=== PATIENT | male | born 1945 | race Caucasian/White ===

== ENCOUNTER 2023-09-02 21:10 | Inpatient (IN) | payer OTHER, SELFPAY ==
[2023-09-02 15:53] VITALS: BP 101/69
[2023-09-02 16:17] LABS: % Basophils 0.6 % (0-2); % Eosinophils 0.9 % (0-6); % Immature Granulocytes 0.6 % (0-0.5); % Lymphocytes 5.2 % (20.5-51.1); % Monocytes 5.9 % (1.7-9.3); % Neutrophils 86.8 % (42.2-75.2); Absolute Eosinophils 0.1 10^3/uL (0-0.7); Absolute Lymphocytes 0.3 10^3/uL (1.2-3.4); Absolute Monocytes 0.4 10^3/uL (0.1-0.6); Absolute Neutrophils 5.7 10^3/uL (1.4-6.5); Hematocrit 28.4 % (39.0-52.0); Hemoglobin 9.2 g/dL (13.0-18.0); Mean Corp Hgb Conc. 32.4 g/dL (33.0-37.0); Mean Corpuscular Hgb 30.9 pg (27.0-31.0); Mean Corpuscular Volume 95.3 fL (80.0-94.0); Mean Platelet Volume 9.2 fL (7.4-10.4); Nucleated Red Blood Cells % 0 % (-); Platelet Count 360 10^3/uL (130-400); Red Blood Cell Count 2.98 10^6/uL (4.70-6.10); Red Cell Dist. Width 15.2 % (11.5-14.5); White Blood Cell Count 6.6 10^3/uL (4.8-10.8)
[2023-09-02 16:27] LABS: INR 2.37; PT 26.3 Sec (11.4-14.6)
[2023-09-02 16:28] VITALS: BP 133/75
[2023-09-02 16:34] LABS: ALT (SGPT) 13 U/L (0-50); AST (SGOT) 18 U/L (17-59); Albumin 3.1 g/dl (3.5-5.0); Alkaline Phosphatase 72 U/L (38-126); Blood Urea Nitrogen 27 mg/dl (9-20); Calcium 9.6 mg/dl (8.4-10.2); Carbon Dioxide 24 mmol/L (22-30); Chloride 103 mmol/L (98-107); Glucose 146 mg/dl (70-99); Potassium 3.6 mmol/L (3.5-5.1); Sodium 138 mmol/L (135-145); Total Bilirubin 0.6 mg/dl (0.2-1.3); Total Protein 6.9 g/dl (6.3-8.2); eGFR > 60.00
[2023-09-02 16:43] LABS: NT-proBNP 2470 pg/ml; Troponin I < 0.012 ng/ml
[2023-09-02 17:00] VITALS: BP 139/83
--- NOTE | 2023-09-02 17:26 | ED.GENMED ---
History of Present Illness
General
Chief Complaint: Breathing Problem
Time Seen by Provider: 09/02/23 16:23
Travel History
Have you had any contact with someone who has COVID-19?: No
Do you have any symptoms of coronavirus? Fever > 100 degrees, chills, cough, shortness of breath, sore throat, loss of taste or smell, muscle aches, or headache?: No
History of Present Illness
History of Present Illness:
78-year-old male with history of multiple myeloma currently undergoing chemotherapy presents to the emergency department for an outpatient echocardiogram due to a large pleural effusion. Pleural effusion was obscuring some of the views on the echo
thus it was felt that it was significant enough to require intervention. Patient reports exertional shortness of breath and general weakness for the past several weeks. He denies any chest pain or pressure at this time. Denies any fevers or
chills. Currently feels well while seated in bed. Does take Eliquis, took his morning dose today
Past History
Past History
ED Past Medical History: Cancer, HTN, Hypercholesterolemia, NIDDM, Hypothyroidism and Other (Diverticulitis, kidney stones)
ED Past Surgical History: Tonsilectomy and Urological
Social History
Tobacco: Non-smoker
Alcohol: None
Drug: None
Personal:
Living: with family
Employment: Retired
Family History
Family History: Other (Noncontributory)
Review of Systems
Review of Systems
Allergies reviewed?: Yes
All Other Systems: ROS reviewed and negative except as documented in HPI and ROS
Phy Exam
Physical Exam
Physical Exam:
GEN: Frail and cachectic, no immediate distress
HEENT: Oral mucosa moist, no scleral icterus
Cardiac: Regular rate and rhythm
Lung: No respiratory distress, no tachypnea, essentially absent left breath sounds, clear right breath sounds
MSK: No gross deformity or injuries
Skin: Good color, no pallor or jaundice, no rashes
Neuro: AO x3, moves all extremities freely
Psych: Calm, cooperative
Scores
Heart Failure Risk
Heart Failure Risk Score: Not Applicable
Course
Orders/Labs/Results
Orders:
Orders
09/02/23 15:56
Electrocardiogram (*1) Stat
Reason for Study: Shortness of Breath
EKG- Treatment ONCE
09/02/23 16:01
Complete Blood Count/With Diff Stat
Comprehensive Metabolic Panel Stat
NT-proBNP Stat
Prothrombin Time Stat
Troponin I Urgent
09/02/23 16:23
CR Chest - 2 Views Urgent
Comment:
Reason For Exam: pleural effusion on echo
Abnormal Lab Results
09/02/23
16:01
RBC 2.98 L 10^6/uL
(4.70-6.10)
Hgb 9.2 L g/dL
(13.0-18.0)
Hct 28.4 L %
(39.0-52.0)
MCV 95.3 H fL
(80.0-94.0)
MCHC 32.4 L g/dL
(33.0-37.0)
RDW 15.2 H %
(11.5-14.5)
Absolute Lymphs (auto) 0.3 L 10^3/uL
(1.2-3.4)
Immature Gran % 0.6 H %
(0-0.5)
Neutrophils % 86.8 H %
(42.2-75.2)
Lymphocytes % 5.2 L %
(20.5-51.1)
PT 26.3 H Sec
(11.4-14.6)
BUN 27 H mg/dl
(9-20)
Glucose 146 H mg/dl
(70-99)
Albumin 3.1 L g/dl
(3.5-5.0)
09/02/23 16:01
09/02/23 16:01
Vital Signs
Initial and Last Documented VS:
Initial Vital Signs
Temp Pulse Resp BP Pulse Ox
98.0 F 98 16 101/69 98
09/02/23 15:53 09/02/23 15:53 09/02/23 15:53 09/02/23 15:53 09/02/23 15:53
Last Documented Vital Signs
Temp Pulse Resp BP Pulse Ox
98.0 F 93 19 133/75 97
09/02/23 15:53 09/02/23 16:30 09/02/23 16:30 09/02/23 16:28 09/02/23 18:01
MDM/Problems Addressed
MDM/Problems Addressed:
Will admit the patient to the hospitalist service for IR consultation and thoracentesis given the profound pleural effusion, not reasonable to perform tonight given the patient's Eliquis use and current clinical stability as he is not requiring
supplemental oxygen.
Comment
Comment:
Chest x-ray independently interpreted by me shows a large left pleural effusion with near total opacification of the left hemithorax
*Critical Care Note
Total Time (30-74mins, 75-104mins- exclusive of procedures): Not Applicable
ED Attending Note
-
Portions of this chart may have been created with voice recognition software.� Occasional wrong word or��sound alike� substitutions may have occurred due to the inherent limitations of voice recognition software.
Discharge Plan
Departure
Patient Disposition: Admit
Date of Disposition: 09/02/23
Time of Disposition: 19:31
Presentation/result/management discussed w/ accepting MD/DO: Hospitalist
Discharge Problem:
Pleural effusion, left
Prescriptions:
No Action
tamsulosin 0.4 MG capsule
0.4 mg PO DAILY
acyclovir 200 MG capsule
400 mg PO BID
calcium carbonate-vitamin D3 1 EACH capsule
2 ea PO BID
levothyroxine 137 MCG tablet
137 mcg PO DAILY
loperamide 2 mg Tablet
2 mg PO Q4H PRN (Reason: diarrhea)
montelukast [Singulair] 10 mg Tablet
10 mg PO UD
Rx Instructions:
take stating the night of darzalex infusion and then 3 days after
cyclophosphamide 500 mg Recon Soln
0 g IV TH
bortezomib [Velcade] 3.5 mg Recon Soln
0 mg IV TH
Xgeva 120 mg/1.7 mL (70 mg/mL) Solution
120 mg SC MONTHLY
Darzalex 20 mg/mL Solution
0 mg IV Q3W
amlodipine 5 MG tablet
5 mg PO DAILY
hydrocortisone acetate 25 mg Suppository
25 mg TN BID 7 Days Qty: 14 0RF
Referrals:
UNKNOWN - PT DOES,NOT KNOW [Unknown Provider] -
Interventions
Interventions:
*Risk Screen - Suicide Last Done: 09/02/23 17:58
*General Assessment Last Done: 09/02/23 17:58
*Neglect/Abuse Screening Last Done: 09/02/23 17:58
ED- Fall Risk Assessment Last Done: 09/02/23 18:01
*ED COVID-19 Vaccine History Last Done: 09/02/23 15:53
ED- Cardiac Assessment Last Done: 09/02/23 17:58
ED- Pulmonary Assessment Last Done: 09/02/23 18:01
[2023-09-02 18:00] VITALS: BP 141/85
--- NOTE | 2023-09-02 19:46 | HPS.HSE ---
Addendum entered and electronically signed by Helio Dumont DO 09/02/23 21:16:
Patient seen and examined independently. Agree with findings and plan as set forth by DOLORES Canela.
Patient is a 78y M with PMH significant for multiple myeloma on chemotherapy who presents to ED complaining of SOB and fatigue for the past 3-4 weeks. Patient has missed his last 2 weeks of treatment sessions due to his fatigue and generally
feeling poorly. He denies any cough, chest pain, fevers / chills, etc. He has lost about 11 pounds in the past 2 months. He has been on chemo for myeloma for the past 4 years or so.
Evaluation in the ED today reveals very large L pleural effusion. Patient denies any prior history of pleural effusion / thoracentesis / etc.
He appears very comfortable at rest, despite impressive CXR findings.
Ass:
Large Left Pleural Effusion
Multiple Myeloma on Chemotherapy
LLE DVT (03/2023)
DM-II
Hypothyroidism
BPH
Stage II Sacral Decubitus Ulcer
Plan:
Admit for further evaluation and treatment.
Hold Eliquis - last dose was AM (09/02/23).
IR evaluation for diagnostic / therapeutic thoracentesis in the AM.
CT C/A/P after thoracentesis for further evaluation.
Wound Care eval for sacral wound.
Continue outpatient meds excepting Eliquis.
Original Note:
Family Physician
-
Family Physician: Sanket Thornton
Chief Complaint
-
Shortness of breath weakness
History of Present Illness
78-year-old male from home with his present complaining of weakness with shortness of breath over the past 2 weeks. He missed his chemo for multiple myeloma last and today due to profound weakness. He has chronic orthopnea has been
sleeping with 2-3 pillows for many years he states. He states he is on Eliquis for a DVT of his left leg in March 2023. He has also had a 11 pound weight loss in the past 2 months. He was diagnosed with multiple myeloma in 2019 and has done
several rounds of different chemotherapies. He follows with [facility]. He denies current headache, dizziness, chest pain, fever, chills, palpitations, abdominal pain, nausea, vomiting, diarrhea, urinary symptoms, bleeding, black stools.
His states he is a current sacral decub that is opened. They have been using a DuoDERM pad dressing. He has past medical history of multiple myeloma on current chemotherapy, DVT left lower extremity March 2023 on Eliquis, DM2, GERD,
hypothyroidism, chronic anemia, BPH, bladder fistula repair, osteoporosis, hypothyroidism, hemorrhoidal GI bleed, diverticular bleed with ruptured diverticulum and robotic sigmoidectomy.
Medical History
Past Medical History
Past Medical History: Reports Other
Additional Past Medical History:
multiple myeloma on current chemotherapy
Chronic anemia
DVT left lower extremity March 2023 on Eliquis
DM2
GERD
hypothyroidism
BPH
bladder fistula repair
osteoporosis
hypothyroidism
hemorrhoidal GI bleed
diverticular bleed with ruptured diverticulum and robotic sigmoidectomy
Cachexia
Past Surgical History: Reports Other (diverticular bleed with ruptured diverticulum and robotic sigmoidectomy.)
Social History
Tobacco: Non-smoker
Alcohol: None
Drug: None
Personal:
Living: With Family ()
Employment: Retired
Family History
Family History: Cancer (Mother brain tumor age 83, father prostate cancer, maternal aunt breast cancer)
Allergies / Home Medications
Allergies reflects when Allergies were last updated in [facility].
Home Medications with original date entered in [facility]
Allergy/Medication List:
Allergies
Allergy/AdvReac Type Severity Reaction Status Date / Time
No Known Allergies Allergy Verified 09/02/23 15:55
Home Medications
acyclovir 200 mg capsule 400 mg PO BID Infection prevention 12/02/20
tamsulosin 0.4 mg capsule 0.4 mg PO HS Urinary issue 12/02/20
calcium carbonate 600 mg-vitamin D3 62.5 mcg (2,500 unit) capsule 2 ea PO DAILY Supplement 12/20/20
levothyroxine 137 mcg tablet 137 mcg PO DAILY Thyroid 12/20/20
denosumab 120 mg/1.7 mL (70 mg/mL) subcutaneous solution (Xgeva) 120 mg SC MONTHLY Cancer 04/20/22
amlodipine 5 mg tablet 5 mg PO DAILY PRN Blood pressure 04/21/22
Ivig 1 dose IV MONTHLY 09/02/23
Tecvayli 1 dose SC MONTHLY 09/02/23
apixaban 5 mg tablet 5 mg PO BID 09/02/23
glimepiride 1 mg tablet 1 mg PO DAILY PRN blood sugar 09/02/23
Review of Systems
-
History Source: Patient and Family ()
A 12 point ROS was completed and negative except as noted: Yes
Constitutional: Reports Weight Loss (11 pounds x 2 months) and Fatigue; Denies Chills
EENT: Denies Sore Throat or Runny Nose
Respiratory: Reports Trouble Breathing (SOB/NAIR) and Other (Orthopnea); Denies Cough
Cardiac: Denies Chest Pain, Diaphoresis, Palpitations or Syncope
Abdomen/GI: Reports Anorexia; Denies Abdominal Pain, Nausea, Vomiting, Diarrhea, Constipated, Bloody Stools or Black Stools
: Denies Dysuria, Frequency, Flank Pain, Incontinence, Difficulty Voiding, Urgency or Bleeding
Musculoskeletal: Denies Joint Pain or Edema
Skin: Denies Itching or Rash
Neurological: Reports Weakness (Generalized); Denies Dizzy or Headache
Endocrine: Reports No Symptoms
Hematologic/Lymphatic: Reports No Symptoms
Psych: Reports Calm
Physical Exam
Vital Signs
Vital Signs
Temp Pulse Resp BP Pulse Ox
98.0 F 93 19 133/75 97
09/02/23 15:53 09/02/23 16:30 09/02/23 16:30 09/02/23 16:28 09/02/23 18:01
Physical Exam
General: Cachectic; No Pain, Fever or Chills
HEENT: NormoCephalic, Anicteric, PERRLA, Brenda Conjunctivae and No Ptosis
Respiratory: Other (Absent breath sounds entire left lung, right lung CTA); No Wheezes or Rales
Cardiac: S1/S2, Regular Rhythm and Peripheral Edema (Trace bilateral ankles); No Murmur, Rub or Gallop
Breast: Deferred by me
GI: Soft, Non Tender, Non Distended, Normal Bowel Sounds and No Hepatosplenomegaly
Rectal: Deferred by Provider
Genito-urinary: Deferred by me
Musculoskeletal: No Clubbing, No Cyanosis, Edema, Left Lower Extremity (Trace to ankle) and Edema, Right Lower Extremity (Trace to ankle); No Edema, Left Upper Extremity or Edema, Right Upper Extremity
Skin: Warm and Dry; No Rash or Jaundice
Neuro: AO x 3, No Motor Deficits, Nonfocal/grossly intact, Cranial Nerves Intact and No Sensory Deficits; No Slurred Speech, Facial Droop or Tremors
Psych: Calm
Laboratory Results
-
09/02/23 16:01
09/02/23 16:01
Laboratory Results
PT 26.3 Sec (11.4-14.6) H 09/02/23 16:01
INR 2.37 09/02/23 16:01
Total Bilirubin 0.6 mg/dl (0.2-1.3) 09/02/23 16:01
AST 18 U/L (17-59) 09/02/23 16:01
ALT 13 U/L (0-50) 09/02/23 16:01
Alkaline Phosphatase 72 U/L (38-126) 09/02/23 16:01
Troponin I < 0.012 ng/ml 09/02/23 16:01
Impression/Plan
-
Impression/plan:
Admit to telemetry
#Massive left pleural effusion
97% RA
-Patient took Eliquis this a.m. 09/02/2023
-HOLD Eliquis
-Consult IR for thoracentesis
-Will need CT chest abdomen pelvis AFTER thoracentesis
-Consult oncology
CXR
1. MASSIVE LEFT PLEURAL EFFUSION which has markedly enlarged since 04/26/2023 and causes complete compressive atelectasis of the left lower lobe and moderate subpleural compressive atelectasis of the left upper
lobe.
2. � MULTIPLE MYELOMA with diffuse bone demineralization.
#Hypercoagulopathy unclear
INR 2.37 will monitor
#Sacral decub stage II POA
-Consult wound care
#Hx multiple myeloma
-Diffuse bone mineralization on CXR
Missed last 2 of chemotherapy
follows with [facility]
Continue acyclovir 4 mg twice daily
Patient is on Xgeva 120 mg subcu monthly, TecVayli and IVIG
#Chronic anemia
Hgb 9.2 appears baseline
#Hypothyroidism
cont levothyroxine
#Htn
BP stable-
cont amlodipine
#GERD
Hx GI bleed hemorrhoidal/diverticular April 2022
Hx of robotic sigmoidectomy secondary to ruptured diverticulum
#Hx hepatic hemangioma
#DM 2
-Accu-Cheks with SSI, check HgbA1c
-Continue glimepiride
#HLD
-No meds listed
#BPH
Bladder fistula repair
-Continue Flomax 0.4 mg at bedtime
#Osteoporosis
-Continue calcium carbonate plus vitamin D3
#Cachexia 2/2 malnutrition
-Consult dietary
DVT prophylaxis
Hold current Eliquis due to hypercoagulopathy and massive left pleural effusion
DNR per patient with present
--- NOTE | 2023-09-02 19:50 | PHANOTE ---
Med Rec Note:
Pt's spouse gave list of pt's medications, unable to confirm dosages with Dr Matt or ECW.
[2023-09-02 23:15] VITALS: BP 132/94
[2023-09-02 23:30] VITALS: BP 117/80
[2023-09-03] VITALS (28 sets, daily range): BP systolic 66–153; BP diastolic 69–92; PULSE 65–68; O2SAT 98–99; BMI 20.9; BMI 16.6
[2023-09-03] MEDS: TYLENOL 650 MG PO ×4 (02:27→20:55)
[2023-09-03] MEDS: FLOMAX 0.400000000000000022 MG PO ×2 (02:28→20:56)
[2023-09-03 05:26] LABS: % Basophils 0.9 % (0-2); % Eosinophils 1.4 % (0-6); % Immature Granulocytes 0.9 % (0-0.5); % Lymphocytes 4.8 % (20.5-51.1); % Monocytes 7.3 % (1.7-9.3); % Neutrophils 84.7 % (42.2-75.2); Absolute Basophils 0.1 10^3/uL (0-0.2); Absolute Eosinophils 0.1 10^3/uL (0-0.7); Absolute Immature Granulocytes 0.1 10^3/uL (0-0.05); Absolute Lymphocytes 0.3 10^3/uL (1.2-3.4); Absolute Monocytes 0.4 10^3/uL (0.1-0.6); Absolute Neutrophils 4.9 10^3/uL (1.4-6.5); Hematocrit 24.8 % (39.0-52.0); Hemoglobin 8.4 g/dL (13.0-18.0); Mean Corp Hgb Conc. 33.9 g/dL (33.0-37.0); Mean Corpuscular Hgb 31.8 pg (27.0-31.0); Mean Corpuscular Volume 93.9 fL (80.0-94.0); Nucleated Red Blood Cells % 0 % (-); Platelet Count 303 10^3/uL (130-400); Red Blood Cell Count 2.64 10^6/uL (4.70-6.10); White Blood Cell Count 5.8 10^3/uL (4.8-10.8)
[2023-09-03 05:43] LABS: Blood Urea Nitrogen 26 mg/dl (9-20); Calcium 9.2 mg/dl (8.4-10.2); Carbon Dioxide 22 mmol/L (22-30); Chloride 108 mmol/L (98-107); Estimated Creatinine Clearance 68 ml/min; Glucose 84 mg/dl (70-99); Potassium 3.7 mmol/L (3.5-5.1); Sodium 138 mmol/L (135-145); eGFR > 60.00
[2023-09-03] MEDS: TYLENOL PO ×3 (06:39→23:20)
[2023-09-03] MEDS: NORVASC PO (06:40)
[2023-09-03] MEDS: ZOVIRAX 400 MG PO ×2 (08:29→20:56)
[2023-09-03] MEDS: NORVASC 5 MG PO (08:29)
[2023-09-03] MEDS: SYNTHROID 137 MCG PO (08:29)
[2023-09-03] MEDS: OSCAL 500 + D 1000 MG PO (08:34)
[2023-09-03 08:37] LABS: Glucose - Point of Care 84 mg/dl (70-99)
[2023-09-03] MEDS: NOVOLOG FLEXPEN-LOW RESISTANCE SC ×3 (08:37→16:31)
--- NOTE | 2023-09-03 09:04 | CON.ONC ---
Addendum entered and electronically signed by Steven Silva MD 09/03/23 14:40:
Oncology Addendum:
-pt seen and evaluated - agree w/ [employer]AL[employer] CONSULTANT note and plan as outlined
-advanced multiple myeloma - known to Dr. De La Fuente and [facility]
-tx w/ Teclistamab - s/p several cycles - last 08/19 as outpt w/ Dr. De La Fuente
-new left pleural effusion - unclear etiology - s/p thoracentesis
-pleural fluid studies pending - cytology pending
-myeloma rarely involves pleural fluid - however - pt did have previous biopsy proven plasma cell neoplasm of abdominal wall and supraclavicular region
-pt had not achieved a significant positive response to current treatment
-check f/u serum protein studies - SPEP/ QIGs/ light chains
-pulmonary consulted for evaluation
-may benefit from cardiac evaluation/ repeat echo
Will continue to follow with you
Original Note:
Impression
Impression
Stage III multiple myeloma; IgG kappa on chemotherapy (Teclistamab)
Monthly IVIG; last received 08/12/23
LLE DVT; Eliquis (03/2023)
Right arm plasmacytoma s/p palliative XRT (2016)
Large left pleural effusion
Acute SOB/NAIR
Neutrophilia
Generalized weakness
Sacral decubitus ulcer
Poor appetite, weight loss
Acute diarrhea
Plan
Plan
09/02 CXR: MASSIVE LEFT PLEURAL EFFUSION which has markedly enlarged since 04/26/2023 and causes complete compressive atelectasis of the left lower lobe and moderate subpleural compressive atelectasis of the left upper lobe. MULTIPLE MYELOMA with
diffuse bone demineralization.
s/p diagnostic/therapeutic left-sided thoracentesis in [facility]: Successful ultrasound-guided thoracentesis, yielding 2000 cc of serosanguineous pleural fluid.
Eliquis held for procedure; >24 hours since last dose
CT chest/abd/pelvis to be performed following thoracentesis
Await cytology
09/03 WBC 5.8, Hgb 8.4, Hct 24.8, MCV 93.9, RDW 15, PLT 303
Monitor CBC, CMP daily
Baseline Hgb 9-10
Transfuse as needed to maintain Hgb >7, PLT >20
08/27 iron 19, %sat 9, TIBC 202, ferritin 651 (ordered outpatient due to drop in Hgb)
IV iron only appropriate in the absence of acute infection; elevated ferritin most likely inflammatory/reactive
08/27 Myeloma panel marginally improved/stable (outpatient)
Receives monthly IVIG; last received 08/12
08/27 IgG level 2882
Uric acid, LDH, CRP levels ordered
Continue Acyclovir for prophylaxis
Consider CMV/EBV titers as viral reactivation can be seen in bi-specific antibody treatment (per Dr. De La Fuente's most recent office note)
Physical therapy evaluation; falls precautions
If functional status does not improve; MRI spine can be considered to rule out epidural or leptomeningeal disease per Dr. De La Fuente
WOCN consult
Consider nutrition consult
Monitor acute diarrhea; Imodium PRN
Supportive care
Follow up with Dr. De La Fuente is scheduled 09/09/23 @ 0830 in [facility] office. We will continue to follow.
Patient History
History of Present Illness
Malcolm Collins is a 78 year old male known to Dr. De La Fuente at [facility] with history of stage III IgG kappa multiple myeloma. His disease was relatively stable until development of right arm/chest plasmacytomas. He was admitted for inpatient treatment
at [facility] following disease progression with Teslistamab. He did well and did not experience significant adverse reactions while admitted with the exception of a low grade fever. He continues on weekly treatments at [facility] as well as monthly IVIG and
Xgeva. He was last seen in the office 08/26/23. He was weak and SOB/NAIR unable to ambulate in the office and requiring a wheelchair. He was sent for outpatient ECHO and found to have a large pleural effusion obscuring the views of the ECHO. He
endorses SOB/NAIR and weakness x3-4 weeks with weight loss and poor appetite. He was sent to the ER for further evaluation and intervention for pleural effusion. He denies fever, chills, night sweats, or acute pain. He reports episodes of watery
diarrhea in the past 1-2 days with last BM this morning. He is requesting Imodium. His Eliquis is being held for upcoming procedure.
Past-Medical/Surgical History
Stage III multiple myeloma; IgG kappa
LE DVT; Eliquis (03/2023)
Revlimid-induced diarrhea
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
Hypertension
Diabetes
Hypercholesterolemia
Tonsillectomy
Hypothyroidism
Nephrolithiasis
Diverticulitis
Nonsmoker
Hypercalcemia
Generalized deconditioning
Hx ARF/ROXANA
Patient Medication
Medication Instructions Recorded Confirmed Last Taken Type
acyclovir 200 mg capsule 400 mg PO BID Infection prevention 12/02/20 04/20/22 09/02/23 History
tamsulosin 0.4 mg capsule 0.4 mg PO HS Urinary issue 12/02/20 04/20/22 09/01/23 History
calcium carbonate 600 mg-vitamin 2 ea PO DAILY Supplement 12/20/20 04/20/22 09/02/23 History
D3 62.5 mcg (2,500 unit) capsule
levothyroxine 137 mcg tablet 137 mcg PO DAILY Thyroid 12/20/20 04/20/22 09/02/23 History
denosumab 120 mg/1.7 mL (70 mg/mL) 120 mg SC MONTHLY Cancer 04/20/22 04/20/22 Unknown History
subcutaneous solution (Xgeva)
amlodipine 5 mg tablet 5 mg PO DAILY PRN Blood pressure 04/21/22 04/20/22 04/20/22 History
Ivig 1 dose IV MONTHLY 09/02/23 Unknown History
Tecvayli 1 dose SC MONTHLY 09/02/23 Unknown History
apixaban 5 mg tablet 5 mg PO BID 09/02/23 09/02/23 History
glimepiride 1 mg tablet 1 mg PO DAILY PRN blood sugar 09/02/23 Unknown History
Active Medications
Generic Name Dose Route Start Last Admin
Trade Name Randall PRN Reason Stop Dose Admin
Acetaminophen 650 mg 09/03/23 02:01 09/03/23 08:29
Acetaminophen 325 Mg Tablet PO 10/01/23 02:00 650 mg
Q4HWA VALDO Administration
Acyclovir Sodium 400 mg 09/03/23 08:00 09/03/23 08:29
Acyclovir Sodium 200 Mg Capsule PO 09/13/23 07:59 400 mg
BID VALDO Administration
Amlodipine Besylate 5 mg 09/03/23 02:01 09/03/23 08:29
Amlodipine 5 Mg Tablet PO 10/01/23 02:00 5 mg
DAILY VALDO Administration
Calcium/Vitamin D 1,000 mg 09/03/23 08:00 09/03/23 08:34
Calcium Carbonate 500 Mg/Vitamin D 5 Mcg (200 Units) Tablet PO 10/01/23 07:59 1,000 mg
DAILY VALDO Administration
Dextrose 12.5 grams 09/03/23 02:01
Dextrose 50% (0.5 Grams/Ml) 50 Ml Syringe IV 10/01/23 02:00
[id number] PRN
hypoglycemia
Protocol
Glucagon 1 mg 09/03/23 02:01
Glucagon 1 Mg Vial IM 10/01/23 02:00
PRN PRN
hypoglycemia
Protocol
Insulin Aspart 0 units 09/03/23 07:30 09/03/23 08:37
Insulin Aspart Low Resistance 300 Units/3 Ml Pen.Injctr SC 10/01/23 07:29 Not Given
AC VALDO
Protocol
Levothyroxine Sodium 137 mcg 09/03/23 07:00 09/03/23 08:29
Levothyroxine 137 Mcg Tablet PO 10/01/23 06:59 137 mcg
DAILY@0700 VALDO Administration
Sodium Chloride 0 flush 09/03/23 03:00
Sodium Chloride 0.9% (Flush) Syringe IV 10/01/23 02:59
PER PROTOCOL VALDO
Tamsulosin HCl 0.4 mg 09/03/23 02:01 09/03/23 02:28
Tamsulosin 0.4 Mg Capsule PO 10/01/23 02:00 0.4 mg
HS VALDO Administration
Review of Systems
-
History Source: Patient, Family, Coordinated Provider and Records
Constitutional: Reports Weight Loss, No Appetite, Fatigue and Weakness; Denies Fever, Night Sweats or Chills
EENT: Reports No Symptoms
Respiratory: Reports Trouble Breathing
Cardiac: Reports No Symptoms
GI: Reports Diarrhea
Breast: Reports N/A
: Reports No Symptoms
Musculoskeletal: Reports No Symptoms
Skin: Reports No Symptoms
Neuro: Reports Weakness
Endocrine: Reports No Symptoms
Hematologic/Lymphatic: Reports No Symptoms
Allergy / Immunology: Reports No Symptoms
Psych: Reports No Symptoms
Physical Exam
-
Patient is resting on the stretcher, at bedside. He denies pain. 98% on room air. He is requesting Imodium.
General: No Apparent Distress, Comfortable, Conversant, Appears Chronically Ill and Cachetic; Negative Respiratory Distress, Pain, Fever or Chills
HEENT: Negative Jaundice
Cardiology: S1, S2 and Other (tachycardia)
Pulmonary: Other (diminished)
GI: Normal Bowel Sounds
Musculoskeletal: No Edema
Extremities: Pulses Present
Neurology: Non Focal
Skin: Warm, Dry and Other (pallor)
Psych: Calm
Labs
Lab Results
WBC 5.8 10^3/uL (4.8-10.8) 09/03/23 05:08
RBC 2.64 10^6/uL (4.70-6.10) L 09/03/23 05:08
Hgb 8.4 g/dL (13.0-18.0) L 09/03/23 05:08
Hct 24.8 % (39.0-52.0) L 09/03/23 05:08
MCV 93.9 fL (80.0-94.0) 09/03/23 05:08
MCH 31.8 pg (27.0-31.0) H 09/03/23 05:08
MCHC 33.9 g/dL (33.0-37.0) 09/03/23 05:08
RDW 15.0 % (11.5-14.5) H 09/03/23 05:08
Plt Count 303 10^3/uL (130-400) 09/03/23 05:08
MPV 9.0 fL (7.4-10.4) 09/03/23 05:08
Abs Immat Gran (auto) 0.1 10^3/uL (0-0.05) H 09/03/23 05:08
Absolute Neuts (auto) 4.9 10^3/uL (1.4-6.5) 09/03/23 05:08
Absolute Lymphs (auto) 0.3 10^3/uL (1.2-3.4) L 09/03/23 05:08
Absolute Monos (auto) 0.4 10^3/uL (0.1-0.6) 09/03/23 05:08
Absolute Eos (auto) 0.1 10^3/uL (0-0.7) 09/03/23 05:08
Absolute Basos (auto) 0.1 10^3/uL (0-0.2) 09/03/23 05:08
Immature Gran % 0.9 % (0-0.5) H 09/03/23 05:08
Neutrophils % 84.7 % (42.2-75.2) H 09/03/23 05:08
Lymphocytes % 4.8 % (20.5-51.1) L 09/03/23 05:08
Monocytes % 7.3 % (1.7-9.3) 09/03/23 05:08
Eosinophils % 1.4 % (0-6) 09/03/23 05:08
Basophils % 0.9 % (0-2) 09/03/23 05:08
Creatinine 0.9 mg/dL (0.7-1.3) 09/03/23 05:08
Vital Signs
Vital Signs
Temp Pulse Resp BP Pulse Ox
98.0 F 68 18 132/84 96
09/02/23 15:53 09/03/23 08:45 09/03/23 08:45 09/03/23 08:30 09/03/23 08:45
--- NOTE | 2023-09-03 09:34 | WOUNDNOTE ---
SACRAL/BUTTOCKS (with photo flash)
--- NOTE | 2023-09-03 09:35 | WOUNDNOTE ---
FEET (L MEDIAL, R LATERAL)
--- NOTE | 2023-09-03 09:35 | WOUNDNOTE ---
FEET (R LATERAL, L MEDIAL PLANTAR)
--- NOTE | 2023-09-03 09:36 | WOUNDNOTE ---
L ANKLE/HEEL (POSTERIOR)
--- NOTE | 2023-09-03 09:37 | WOUNDNOTE ---
L GREAT TOE TIP
--- NOTE | 2023-09-03 09:38 | WOUNDNOTE ---
[facility] RN note: Patient admitted with L large pleural effusion, hypercoagulopathy. Patient lives with his . He has a daughter who is a nurse.
See H&P for complete history.
PMH: multiple myeloma on chemotherapy for 4 years, LLE DVT 03/2023, DM, BPH, stage 2 sacral pressure injury, cachexia.
Wound Location and type/assessment: Patient admitted with: diffuse red with scattered dermal open skin area stage 2 along with MASD on sacral/buttocks. R heel blanchable red. Tinea fungal appearing rash on feet/ankles/toes. Scattered bruises on
arms. Trace pedal/ankle edema. +Palpable pedal pulses.
Appetite: poor for the last month.
Pressure redistribution devices in place: ED stretcher. Patient needs help to turn. He has an eggcrate on his bed at home. He stated he lays on his side frequently in bed.
Plan: Patient turned with help from Dr. Stephens. Sacral silicone border foam changed. Air chair cushion placed under patient's sacrum. Heels off bed with another air chair cushion. Spoke with ED JASPER Allen who will coordinate placing patient on an air
bed. t/c Spoke with bed tech Grant who will bring up an air mattress (red sign bed). If goes back home when discharged suggested VN, hospital bed with air overlay mattress (luisa mattress) for patient to and patient. aware case management can
arrange.
Confirmed orders with Dr. Stephens and discussed with ED JASPER Allen.
Care plan to be updated and will follow as needed.
Note to case management of equipment requested for discharge: Hospital bed with air mattress or air overlay.
Recommend follow up at wound care center if needed upon discharge.
--- NOTE | 2023-09-03 10:18 | W.PN.HOSP.TC ---
Today's Communication/Plan
-
.
Assessment / Plan
Assessment / Plan
Physical Exam
General: Cachectic; No Pain, Fever or Chills
HEENT: Normocephalic, Anicteric, PERRLA,
Respiratory: Absent breath sounds entire left lung, right lung CTA); No Wheezes or Rales
Cardiac: S1/S2,
GI: Soft, Non Tender, Non Distended
Rectal: no bleeding
Genito-urinary:no Rangel
Musculoskeletal: no cyanosis , chronic ankle edema
Skin: stage II sacral ulcer
Neuro: AO x 3, No Motor Deficits, Nonfocal/grossly intact, Cranial Nerves Intact and No Sensory Deficits; No Slurred Speech, Facial Droop or Tremors
Psych: Calm
#Massive left pleural effusion
NO hypoxia but pt doyle snot ambulate
he has sob at time while in bed
-can resume Eliquis
-Consult IR for thoracentesis
Appreciate iR & pulmonary input
�� � ���CXR
� � � � 1. MASSIVE LEFT PLEURAL EFFUSION which has markedly enlarged since 04/26/2023 and causes complete compressive atelectasis of the left lower lobe and moderate subpleural compressive atelectasis of the left upper
� � � � � � lobe.
�� � � � 2. � MULTIPLE MYELOMA with diffuse bone demineralization.
#Sacral pressure ulcer stage II POA
-Consulted wound care
#Stage III multiple myeloma; IgG kappa on chemotherapy
-Diffuse bone mineralization on CXR
Missed last 2 of chemotherapy
follows with [facility] Dr De La Fuente
Continue acyclovir 4 mg twice daily
Patient is on Xgeva 120 mg subcu monthly, TecVayli and IVIG. Seems frail
#Chronic anemia
Hgb 9.2 appears baseline
#Hypothyroidism
�cont levothyroxine
#Htn
BP stable-
�cont amlodipine
#GERD
Hx GI bleed hemorrhoidal/diverticular April 2022
Hx of robotic sigmoidectomy secondary to ruptured diverticulum
#Hx hepatic hemangioma
#DM 2
-Accu-Cheks with SSI, check HgbA1c
-Continue glimepiride
#HLD
-No meds listed
#BPH
Bladder fistula repair
-Continue Flomax 0.4 mg at bedtime
#Osteoporosis
-Continue calcium carbonate plus vitamin D3
# Severe protein -caloric malnutrition with muscle wasting
due to cancer
DVT prophylaxis
Hold current Eliquis due to hypercoagulopathy and massive left pleural effusion
DNR
Total time spent to see the patient on the floor, examine the patient, review data and lab results, discuss treatment plan with patient and nursing staff around 55 minutes
Anticipated Discharge: > 48 hours
Subjective/Interval History
-
Date of Service: September 03, 2023
Still weak, mild sob
no abd pain
No chest pain
No fevers
Objective Data
-
Labs:
Laboratory Results
09/03/23
05:08
WBC 5.8
Hgb 8.4 L
Hct 24.8 L
Plt Count 303
Sodium 138
Potassium 3.7
Chloride 108 H
Carbon Dioxide 22
BUN 26 H
Creatinine 0.9
Glucose 84
Calcium 9.2
Vital Signs:
Vital Signs
Temp Pulse Resp BP Pulse Ox
98.0 F 69 16 141/82 98
09/02/23 15:53 09/03/23 09:30 09/03/23 09:30 09/03/23 09:30 09/03/23 09:30
[2023-09-03 10:51] LABS: LDH 139 U/L (120-246)
--- NOTE | 2023-09-03 11:45 | EDRN ---
Pt requesting Imodiom for diarrhea. Provider texted. Pt in [facility]
[2023-09-03 12:00] LABS: Glycohemoglobin (HgbA1c) 5.9 % (4.0-5.6)
[2023-09-03 12:19] LABS: Body Fluid Mononuclear 98.4 %; Body Fluid Polymorphonuclear 1.6 %; Body Fluid WBC 693 /CUMM
[2023-09-03 12:20] LABS: Body Fluid pH 7.32
[2023-09-03 12:23] LABS: Body Fluid Second Tech SD
[2023-09-03 12:39] LABS: Body Fluid Amylase 31 U/L; Body Fluid Glucose 40 mg/dl; Body Fluid Protein 5.7 g/dl; Body Fluid Triglycerides < 30 mg/dl
[2023-09-03] MEDS: IMODIUM 2 MG PO ×2 (12:41→20:57)
[2023-09-03 12:51] LABS: Glucose - Point of Care 122 mg/dl (70-99)
[2023-09-03 13:12] LABS: Fibrinogen 527 MG/DL (199-459)
[2023-09-03 13:16] LABS: Body Fluid LDH 1957 U/L
--- NOTE | 2023-09-03 13:27 | WOUNDNOTE ---
Chaim texted JASPER Hammond who confirmed patient is on an air mattress.
--- NOTE | 2023-09-03 13:36 | PTCARENOTE ---
pt presents from IR s/p Thoracentesis. pt is AAO*3, Vss, room air. c/o SOB with exertion. pt denies any pain at this time. Pt has stage 2 in his sacrum. pt is on Air bed. pt is oriented to the room. call pickens within the reach. will continue plan of
care.
[2023-09-03] MEDS: ZYLOPRIM 300 MG PO (14:24)
--- NOTE | 2023-09-03 15:24 | CON.PUL ---
Consultation
Consultation Request
Date/Time Consultation Requested: 09-03-23
Date/Time Consultation Performed: 09-03-23
Requesting Provider: Hospitalist
Performing Provider: Dr Tidwell
Reason for Consultation: pleural effusion
Medical History
-
Chief Complaint: dyspnea
History of Present Illness:
Mr Malcolm Collins is a 78/M adm 09-02 with 3-4 wks h/o dyspnea, general malaise, wt loss of 11 lbs and fatigue leading to missing 2 chemo sessions for MM (on chemo for last 4 y).
At ER, large L pleural effusion identified, no hypoxemia or hemodynamic compromise
S/p thoracentesis, exudate
Noted h/o very small L PF on CT abd Apr 2023
Multiple myeloma on chemotherapy
Advanced MM: on teclistamab s/p several cycles (last 08/19)
Large lytic lesion right iliac bone secondary to multiple myeloma
L4-5 chronic compression fracture secondary to multiple myeloma
R arm plasmacytoma s/p palliative XRT 2016
Previous biopsy proven plasma cell neoplasm of abdominal wall and supraclavicular region
Has not achieved a significant positive response to current treatment
Monthly IVIG
Past Medical History
Past Medical History: Other (see A&P for PMH/PSH)
Social History
Tobacco: Former Smoker
Drug: None
Personal:
Living: With Family
Employment: Retired
Family History
Family History: Reviewed & Not Pertinent
Allergies / Home Medications
Allergies
Allergy/AdvReac Type Severity Reaction Status Date / Time
No Known Allergies Allergy Verified 09/02/23 15:55
Home Medications
Medication Instructions Recorded Confirmed Last Taken Type
acyclovir 200 mg capsule 400 mg PO BID Infection prevention 12/02/20 09/03/23 09/02/23 History
tamsulosin 0.4 mg capsule 0.4 mg PO HS Urinary issue 12/02/20 09/03/23 09/01/23 History
calcium carbonate 600 mg-vitamin 1 cap PO DAILY 1200mg/5000 units 12/20/20 09/03/23 09/02/23 History
D3 62.5 mcg (2,500 unit) capsule
levothyroxine 137 mcg tablet 137 mcg PO DAILY Thyroid 12/20/20 09/03/23 09/02/23 History
denosumab 120 mg/1.7 mL (70 mg/mL) 120 mg SC MONTHLY Cancer 04/20/22 09/03/23 08/05/23 History
subcutaneous solution (Xgeva)
amlodipine 5 mg tablet 5 mg PO DAILY PRN sbp>150 04/21/22 09/03/23 04/20/22 History
Ivig 30 g IV MONTHLY Cancer 09/02/23 09/03/23 08/12/23 History
Tecvayli 98.5 mg SC TH Cancer 09/02/23 09/03/23 Unknown History
apixaban 5 mg tablet 5 mg PO BID Blood Clot 09/02/23 09/03/23 09/02/23 History
Prevention/Tx
glimepiride 1 mg tablet 1 mg PO DAILY PRN blood sugar>200 09/02/23 09/03/23 Unknown History
loperamide 2 mg capsule 2 mg PO TID PRN diarrhea 09/03/23 09/03/23 Unknown History
Review of Systems
-
History Source: Patient
Constitutional: Weight Loss and Fatigue
Respiratory: Trouble Breathing (resolved post L thoracentesis)
Neuro: Weakness
Vitals / Labs / Diagnostic Testing
Vital Signs
Temp Pulse Resp BP Pulse Ox
97.4 F 71 20 145/76 97
09/03/23 12:30 09/03/23 12:30 09/03/23 12:30 09/03/23 12:30 09/03/23 13:39
Lab Data
09/03/23 05:08
09/03/23 05:08
Laboratory Results
09/02/23
16:01
PT 26.3 H
INR 2.37
Microbiology
09/03/23 11:33 Pleural Fluid Gram Stain - Preliminary
09/03/23 11:33 Pleural Fluid Fungal Culture - Preliminary
Culture in progress.
Positive cultures are reported as soon as detected.
Final report to follow in four to five weeks.
Diagnostic Testing:
Physical Exam
-
HEENT: Normocephalic and Moist Mucous Membranes
Cardiovascular: Regular Rhythm, Murmur (n), Peripheral Edema (n) and Calf Tenderness (n)
Respiratory: Clear (decreased at L base) and Non-Labored Respirations
GI: Soft, Non Distended and Non Tender
Neurology: Awake, AO x 3 and No Motor Deficits
Skin: Dry
General: Respiratory Distress (n)
Assessment
-
Assessment
Mr Malcolm Collins is a 78/M adm 09-02 with 3-4 wks h/o dyspnea, general malaise, wt loss of 11 lbs and fatigue leading to missing 2 chemo sessions for MM (on chemo for last 4 y). At ER, large L pleural effusion identified
Impression:
Large L pleural effusion: s/p thoracentesis, exudate
Very small L PF on CT abd Apr 2023
Small pericardial effusion
Conditions present prior to admission:
Bilateral KULWANT DVT February 2023, on apixaban
Urosepsis and COVID illness November 2020, adm [facility] (colovesicular fistula managed conservatively)
Multiple myeloma on chemotherapy
Advanced MM: on teclistamab s/p several cycles (last 08/19)
Large lytic lesion right iliac bone secondary to multiple myeloma
L4-5 chronic compression fracture secondary to multiple myeloma
R arm plasmacytoma s/p palliative XRT 2016
Previous biopsy proven plasma cell neoplasm of abdominal wall and supraclavicular region
Has not achieved a significant positive response to current treatment
Monthly IVIG
Diabetes type 2 with neuropathy
Osteoporosis
Hypertension
Hypothyroidism
Hyperlipidemia
Diverticulosis
Renal calculi
BPH
Hepatic hemangioma
Chronic anemia
Former smoker-quit many years ago
Tonsillectomy/urologic surgery
Stage II sacral decubitus ulcer
Cachexia
DNR
Plan
Remains on RA with POx in high 90s since adm
Not on home O2 or BDs
Resp cevallos comfortable, conversant
Keep asp precs
Large L pleural effusion
S/p thoracentesis 09-02: 2L, serosanguineous PF, M 98%, ^^^LDH, G stain negative, cx/cyto pending. Exudate
Unclear etiology and chronicity at this juncture
No interim chest films since after CT abd Apr 2023 which showed a very small L PF
Potentially unsuspected slow chronic increase of L PF overtime until volume became large enough to elicit symptoms
MM rarely associated with pleural effusions, however, as noted by Onc fashion consultant sales h/o previous biopsy proven plasma cell neoplasm of abdominal wall and supraclavicular region
Doubt hypothyroidism (well controlled) and mild hypoalbuminemia are associated to large L PF
No current meds associated with pleural effusion
Noted small pericardial effusion: same as above, MM could rarely be involved
Follow L PF results
Agree with observation off atbs
Retap if needed to control symptoms of increasing dyspnea or hypoxemia
Consider tunnelized pleural catheter if recurrent effusion in spite of repeat thoracentesis
Continue chronic AC (provoked DVT on apixaban)
From pulm perspective can d/c in next 24-48 hrs if otherwise stable
Agrees to follow with [facility] and Onc. Rec follow up CXR PA/lat on day of [facility] visit
All above d/w Mr and Mrs Collins, their daughter and KP at bedside
Diagnostic Data
CXR 09-02 and 24: Large L pleural effusion, moderate improvement after large volume thoracentesis
CT abd 04-26-23: very small L PF on lower chest cuts
TTE 09-02-23: small pericardial effusion. Normal biventricular function
[2023-09-03 16:31] LABS: Glucose - Point of Care 138 mg/dl (70-99)
[2023-09-03] MEDS: NIZORAL 2% CREAM 1 APPLIC TOPICAL (20:55)
[2023-09-04] MEDS: DESENEX/MITRAZOL/ZEASORB 1 APPLIC TOPICAL ×2 (01:23→09:16)
[2023-09-04 03:09] VITALS: BP 129/75
[2023-09-04] MEDS: TYLENOL PO ×2 (03:29→23:45)
[2023-09-04] MEDS: SYNTHROID 137 MCG PO (04:30)
[2023-09-04 06:00] VITALS: BMI 16.8
[2023-09-04 06:49] LABS: % Basophils 0.9 % (0-2); % Eosinophils 2.8 % (0-6); % Immature Granulocytes 1.1 % (0-0.5); % Lymphocytes 4.2 % (20.5-51.1); % Monocytes 7.5 % (1.7-9.3); % Neutrophils 83.5 % (42.2-75.2); Absolute Basophils 0.1 10^3/uL (0-0.2); Absolute Eosinophils 0.2 10^3/uL (0-0.7); Absolute Immature Granulocytes 0.1 10^3/uL (0-0.05); Absolute Lymphocytes 0.2 10^3/uL (1.2-3.4); Absolute Monocytes 0.4 10^3/uL (0.1-0.6); Absolute Neutrophils 4.4 10^3/uL (1.4-6.5); Hemoglobin 8.7 g/dL (13.0-18.0); Mean Corp Hgb Conc. 33.5 g/dL (33.0-37.0); Mean Corpuscular Hgb 30.5 pg (27.0-31.0); Mean Corpuscular Volume 91.2 fL (80.0-94.0); Mean Platelet Volume 9.3 fL (7.4-10.4); Nucleated Red Blood Cells % 0 % (-); Platelet Count 285 10^3/uL (130-400); Red Blood Cell Count 2.85 10^6/uL (4.70-6.10); Red Cell Dist. Width 14.9 % (11.5-14.5); White Blood Cell Count 5.3 10^3/uL (4.8-10.8)
[2023-09-04 07:22] LABS: Blood Urea Nitrogen 22 mg/dl (9-20); Calcium 8.8 mg/dl (8.4-10.2); Carbon Dioxide 26 mmol/L (22-30); Chloride 104 mmol/L (98-107); Estimated Creatinine Clearance 61 ml/min; Glucose 117 mg/dl (70-99); Potassium 3.5 mmol/L (3.5-5.1); Sodium 136 mmol/L (135-145); eGFR > 60.00
[2023-09-04 07:48] VITALS: BP 126/78
[2023-09-04 07:54] LABS: Glucose - Point of Care 115 mg/dl (70-99)
[2023-09-04] MEDS: NOVOLOG FLEXPEN-LOW RESISTANCE SC ×2 (08:04→14:18)
[2023-09-04] MEDS: NORVASC 5 MG PO (09:15)
[2023-09-04] MEDS: OSCAL 500 + D 1000 MG PO (09:15)
[2023-09-04] MEDS: TYLENOL 650 MG PO ×4 (09:15→20:28)
[2023-09-04] MEDS: ZOVIRAX 400 MG PO ×2 (09:15→20:28)
[2023-09-04] MEDS: ZYLOPRIM 300 MG PO (09:15)
[2023-09-04] MEDS: NIZORAL 2% CREAM 1 APPLIC TOPICAL ×2 (09:16→20:31)
--- NOTE | 2023-09-04 09:17 | W.PN.HOSP.TC ---
Today's Communication/Plan
-
likely dc in am
Assessment / Plan
Assessment / Plan
Physical Exam
General: Cachectic; No Pain, Fever or Chills
HEENT: Normocephalic, Anicteric, PERRLA,
Respiratory: Absent breath sounds entire left lung, right lung CTA); No Wheezes or Rales
Cardiac: S1/S2,
GI: Soft, Non Tender, Non Distended
Rectal: no bleeding
Genito-urinary:no Rangel
Musculoskeletal: no cyanosis , chronic ankle edema
Skin: stage II sacral ulcer
Neuro: AO x 3, No Motor Deficits, Nonfocal/grossly intact, Cranial Nerves Intact and No Sensory Deficits; No Slurred Speech, Facial Droop or Tremors
Psych: Calm
#Large left pleural effusion
s/p successful ultrasound-guided thoracentesis, yielding 2000 cc of serosanguineous pleural fluid on 09/03.
No hypoxia but pt is becoming bedbound.
No sob today
-Resumed Eliquis
-Etiology could be idiopathic as MM not usual to cause pleural effusion. Cytology is pending. Not c/w infectious process, gram stain negative. No underlying cavitary lesion or chronic cough.
Appreciate IR & pulmonary input
#Sacral pressure ulcer stage II POA
-Consulted wound care
#Stage III multiple myeloma; IgG kappa on chemotherapy
-Diffuse bone mineralization on CXR
Missed last 2 of chemotherapy
follows with [facility] Dr De La Fuente
Continue acyclovir 4 mg twice daily
Patient is on Xgeva 120 mg subcu monthly, TecVayli and IVIG. Seems frail
#Chronic anemia due to cancer
Hgb 8-9 appears baseline. Transfuse if HGB less than 8
#Hypothyroidism
�cont levothyroxine
#Htn
BP stable-
�cont amlodipine
#GERD
Hx GI bleed hemorrhoidal/diverticular April 2022
Hx of robotic sigmoidectomy secondary to ruptured diverticulum
#Hx hepatic hemangioma
#DM 2
-Accu-Cheks with SSI, check HgbA1c
-Continue glimepiride
#HLD
-No meds listed
#BPH
Bladder fistula repair
-Continue Flomax 0.4 mg at bedtime
#Osteoporosis
-Continue calcium carbonate plus vitamin D3
# Severe protein -caloric malnutrition with muscle wasting
due to cancer
DVT prophylaxis
Hold current Eliquis due to hypercoagulopathy and massive left pleural effusion
DNR
Total time spent to see the patient on the floor, examine the patient, review data and lab results, discuss treatment plan with patient and nursing staff around 57 minutes
Anticipated Discharge: Within 24 hours
Subjective/Interval History
-
Date of Service: September 04, 2023
No chest pain
No sob
No fevers
Objective Data
-
Labs:
Laboratory Results
09/04/23
06:29
WBC 5.3
Hgb 8.7 L
Hct 26.0 L
Plt Count 285
Sodium 136
Potassium 3.5
Chloride 104
Carbon Dioxide 26
BUN 22 H
Creatinine 0.8
Glucose 117 H
Calcium 8.8
Vital Signs:
Vital Signs
Temp Pulse Resp BP Pulse Ox
97.6 F 70 16 126/78 97
09/04/23 07:48 09/04/23 07:48 09/04/23 07:48 09/04/23 07:48 09/04/23 07:48
I&O
09/03/23 09/04/23 09/05/23
06:59 06:59 06:59
Intake Total 960 / 960
Output Total 370 / 545 175 / 175
Balance 590 / 415 -175 / -175
[2023-09-04] MEDS: OMNIPAQUE 50 ML PO (11:05)
[2023-09-04 11:11] VITALS: BP 121/68
--- NOTE | 2023-09-04 13:45 | W.PN.PUL3 ---
Today's Communication / Plan
-
Follow-up pleural fluid cytology
Incentive spirometer
Up OOB as tolerated
Outpatient follow-up with us in the office with 2 view CXR on the day of that visit (or within 1-2 days of that office visit)
Assessment
-
Assessment
Mr Malcolm Collins is a 78/M adm 09-02 with 3-4 wks h/o dyspnea, general malaise, wt loss of 11 lbs and fatigue leading to missing 2 chemo sessions for MM (on chemo for last 4 y). At ER, large L pleural effusion identified
Impression:
Large L pleural effusion: s/p thoracentesis, exudate -removed 2 L serosanguineous fluid with glucose 40, LDH 1956, pH 7.32 - cytology pending
Very small L PF on CT abd Apr 2023
Small pericardial effusion
Conditions present prior to admission:
Bilateral KULWANT DVT February 2023, on apixaban
Urosepsis and COVID illness November 2020, adm [facility] (colovesicular fistula managed conservatively)
Multiple myeloma on chemotherapy
Advanced MM: on teclistamab s/p several cycles (last 08/19)
Large lytic lesion right iliac bone secondary to multiple myeloma
L4-5 chronic compression fracture secondary to multiple myeloma
R arm plasmacytoma s/p palliative XRT 2016
Previous biopsy proven plasma cell neoplasm of abdominal wall and supraclavicular region
Has not achieved a significant positive response to current treatment
Monthly IVIG
Diabetes type 2 with neuropathy
Osteoporosis
Hypertension
Hypothyroidism
Hyperlipidemia
Diverticulosis
Renal calculi
BPH
Hepatic hemangioma
Chronic anemia
Former smoker-quit many years ago
Tonsillectomy/urologic surgery
Stage II sacral decubitus ulcer
Cachexia
DNR
Plan
Remains on RA and is comfortable
Not on home O2 or BDs
Keep asp precs
Large L pleural effusion
S/p thoracentesis 09-02: 2L, serosanguineous PF, M 98%, ^^^LDH, G stain negative, cx/cyto pending. Exudate
Unclear etiology and chronicity at this juncture
No interim chest films since after CT abd Apr 2023 which showed a very small L PF
Potentially unsuspected slow chronic increase of L PF overtime until volume became large enough to elicit symptoms
MM rarely associated with pleural effusions, however, as noted by Onc direct response consultant h/o previous biopsy proven plasma cell neoplasm of abdominal wall and supraclavicular region
Doubt hypothyroidism (well controlled) and mild hypoalbuminemia are associated to large L PF
No current meds associated with pleural effusion
Noted small pericardial effusion: same as above, MM could rarely be involved
Follow L PF cytology (still pending as of 09/04/2023)
Agree with observation off atbs
Retap if needed to control symptoms of increasing dyspnea or hypoxemia
Consider tunnelized pleural catheter if recurrent effusion in spite of repeat thoracentesis
Restart Eliquis (on due to Hx of provoked DVT)
From pulm perspective can d/c tomorrow if otherwise stable
Agrees to follow with [facility] and Onc. Rec follow up CXR PA/lat on day of [facility] visit
All above d/w Mr and Mrs Collins, their daughter and KP at bedside
(Patient seen and evaluated on 09/04/2023)
Diagnostic Data
CXR 09-02 and : Large L pleural effusion, moderate improvement after large volume thoracentesis
CT abd 04-26-23: very small L PF on lower chest cuts
TTE 09-02-23: small pericardial effusion. Normal biventricular function
Subjective Data
-
Date of Service:
Date of Service: September 04, 2023
Chief Complaint: Pulmonary Follow Up
Subjective:
Seen today. Feels better although does still feel weak. He says he has not gotten up out of bed yet. He denies cough, denies shortness of breath and he is on room air breathing comfortable.
Review of Systems
General: Other (12 point ROS performed and is negative unless mentioned above.)
Objective Data
Data Reviewed
Vital Signs / I&O / Oxygen:
Vital Signs
Temp Pulse Resp BP Pulse Ox
97.4 F 64 18 121/68 98
09/04/23 11:11 09/04/23 11:11 09/04/23 11:11 09/04/23 11:11 09/04/23 11:11
Intake and Output
09/03/23 09/04/23 09/05/23
06:59 06:59 06:59
Intake Total 960 / 960
Output Total 370 / 545 175 / 175
Balance 590 / 415 -175 / -175
SaO2 98
Physical Exam
General: Comfortable
HEENT: Normocephalic and Anicteric
Cardiovascular: S1-S2 and Peripheral Edema (+2 pedal edema)
Respiratory: Wheeze (neg), Crackles (faint in LLL), Rhonchi (neg) and Other (Reduced breath sounds at left base)
GI: Soft, Non Distended, Non Tender and Normal Bowel Sounds
Neurology: Awake and Alert
Skin: Warm and Dry
Labs/Micro/Reports
Lab Data
09/04/23 06:29
09/04/23 06:29
Microbiology
09/03/23 11:33 Pleural Fluid Body Fluid Culture - Preliminary
No Growth After 18-24 Hours
09/03/23 11:33 Pleural Fluid Gram Stain - Preliminary
09/03/23 11:33 Pleural Fluid Fungal Culture - Preliminary
Culture in progress.
Positive cultures are reported as soon as detected.
Final report to follow in four to five weeks.
[2023-09-04 14:18] LABS: Glucose - Point of Care 112 mg/dl (70-99)
[2023-09-04 15:00] VITALS: BP 134/78
[2023-09-04] MEDS: IMODIUM 2 MG PO ×2 (15:14→20:28)
--- NOTE | 2023-09-04 16:15 | CM ---
Cm reviewed medical records.
CM met with patient in room. Patient confirmed demographics. Patient lives independently with daughter in a first floor set up. Patient denied history of VN or SNF. Patient has a walker for ambulation. Patient is active with his PCP. Patient uses
[facility] for medication services .
Patient would be agreeable to home discharge with [facility]. CM updated [facility] regional liaison with new referral.
PLAN: Home with [facility]
[2023-09-04 17:08] LABS: Glucose - Point of Care 170 mg/dl (70-99)
[2023-09-04] MEDS: NOVOLOG FLEXPEN-LOW RESISTANCE 1 UNITS SC (17:11)
[2023-09-04 19:30] VITALS: BP 132/75
[2023-09-04 21:20] LABS: Glucose - Point of Care 195 mg/dl (70-99)
[2023-09-04] MEDS: FLOMAX 0.400000000000000022 MG PO (21:56)
[2023-09-04 23:50] VITALS: BP 125/75
[2023-09-05 03:50] VITALS: BP 130/75
[2023-09-05] MEDS: SYNTHROID 137 MCG PO (04:57)
[2023-09-05] MEDS: TYLENOL 650 MG PO ×2 (04:57→08:44)
[2023-09-05 05:10] VITALS: BMI 17.4
[2023-09-05 07:00] LABS: % Basophils 0.9 % (0-2); % Eosinophils 2.7 % (0-6); % Immature Granulocytes 0.5 % (0-0.5); % Lymphocytes 3.8 % (20.5-51.1); % Monocytes 7.6 % (1.7-9.3); % Neutrophils 84.5 % (42.2-75.2); Absolute Basophils 0.1 10^3/uL (0-0.2); Absolute Eosinophils 0.2 10^3/uL (0-0.7); Absolute Lymphocytes 0.2 10^3/uL (1.2-3.4); Absolute Monocytes 0.4 10^3/uL (0.1-0.6); Absolute Neutrophils 4.6 10^3/uL (1.4-6.5); Hematocrit 25.7 % (39.0-52.0); Hemoglobin 8.6 g/dL (13.0-18.0); Mean Corp Hgb Conc. 33.5 g/dL (33.0-37.0); Mean Corpuscular Hgb 30.9 pg (27.0-31.0); Mean Corpuscular Volume 92.4 fL (80.0-94.0); Mean Platelet Volume 9.1 fL (7.4-10.4); Nucleated Red Blood Cells % 0 % (-); Platelet Count 280 10^3/uL (130-400); Red Blood Cell Count 2.78 10^6/uL (4.70-6.10); Red Cell Dist. Width 14.9 % (11.5-14.5); White Blood Cell Count 5.5 10^3/uL (4.8-10.8)
[2023-09-05 07:28] VITALS: BP 128/73
[2023-09-05 07:28] LABS: Blood Urea Nitrogen 20 mg/dl (9-20); Carbon Dioxide 27 mmol/L (22-30); Chloride 103 mmol/L (98-107); Estimated Creatinine Clearance 56 ml/min; Glucose 108 mg/dl (70-99); Potassium 3.5 mmol/L (3.5-5.1); Sodium 134 mmol/L (135-145); eGFR > 60.00
[2023-09-05 07:57] LABS: Glucose - Point of Care 101 mg/dl (70-99)
[2023-09-05] MEDS: NOVOLOG FLEXPEN-LOW RESISTANCE SC (08:40)
[2023-09-05] MEDS: OSCAL 500 + D 1000 MG PO (08:43)
[2023-09-05] MEDS: NORVASC 5 MG PO (08:43)
[2023-09-05] MEDS: ZOVIRAX 400 MG PO (08:44)
[2023-09-05] MEDS: ZYLOPRIM 300 MG PO (08:44)
[2023-09-05] MEDS: DESENEX/MITRAZOL/ZEASORB 1 APPLIC TOPICAL (08:48)
[2023-09-05] MEDS: NIZORAL 2% CREAM 1 APPLIC TOPICAL (08:48)
--- NOTE | 2023-09-05 09:34 | W.DCSUMMARY ---
Discharge Summary
Discharge Data
Date of Admission: 09/02/23
Date of Discharge: 09/05/23
-
Pending Results: No
Hospital Course
78 years old male admitted with shortness of breath and progressive weakness. Patient was found to have large left pleural effusion. He was evaluated by interventional radiologist and had successful ultrasound-guided thoracentesis with yielding
of 2000 milliliters of serosanguineous� pleural fluid on September 03. No complications reported. No hypoxia. Shortness of breath resolved. Patient was maintained on Eliquis. patient was evaluated by pulmonary doctor and thought that effusion
was unusual for multiple myeloma disease. Cytology was pending. Effusion was not associated with bacterial infectious process as Gram stain was negative. Patient had no underlying cavitary lesion or cough. Scan of the chest, abdomen and pelvis
showed signs of progression of underlying multiple myeloma with pulmonary masses in the left hemithorax, left lower lobe atelectasis, large left anterior chest wall mass involving left ribs, soft tissue mass on the left kidney with diffuse osseous
lytic changes consistent with multiple myeloma. Patient was seen by oncology service in the hospital. Patient was advised to discuss those findings with his primary oncologist Dr. De La Fuente. Patient remained hemodynamically stable. Patient was given
a prescription for antifungal cream to be applied to/ankles/toes. He was evaluated by physical therapy and recommended home health. Case was discussed with his . Patient was discharged in a stable condition.
Physical Exam
General: Cachectic; No Pain, Fever or Chills
HEENT: Normocephalic, Anicteric, PERRLA,
Respiratory: Absent breath sounds entire left lung, right lung CTA); No Wheezes or Rales
Cardiac: S1/S2,
GI: Soft, Non Tender, Non Distended
Rectal: no bleeding
Genito-urinary:no Rangel
Musculoskeletal: no cyanosis , chronic ankle edema
Skin: stage II sacral ulcer
Neuro: AO x 3, No Motor Deficits, Nonfocal/grossly intact, Cranial Nerves Intact and No Sensory Deficits; No Slurred Speech, Facial Droop or Tremors
Psych: Calm.
Total discharge time spent to see the patient on the floor, examine the patient, review data and lab results, discuss treatment plan with patient, and nursing staff around 65 minutes
Discharge Plan
-
Patient Disposition: Home with Home Care
Discharge Diagnosis/Procedures: Large left pleural effusion
Stage II sacral pressure ulcer
Fungal infection of both feet
Diet: As tolerated
Activity Restrictions/Additional Instructions:
Wound Care Instructions
Sacral/buttocks-clean with saline or soap and water, pat dry, 2% miconazole powder followed by no sting barrier wipe or zinc barrier ointment, silicone border foam, change daily and as needed for loosened dressing.
Nizoral cream to ankle/foot/toe rash twice a day x 14 days.
Air mattress
Elevate heels off bed with pillows
Pressure redistributing chair cushion (i.e. Air chair cushion).
Follow up at wound care center if needed, call for an appointment.
Referrals:
Thaddeus Tidwell MD [Active] - (New patient, L pleural effusion, MM on chemo. See with CXR in 2-3 wks post d/c)
Sanket Thornton DO [Family Provider] - in one to two weeks
Bladimir De La Fuente MD [Active] - in one to two weeks
Prescriptions:
New
ketoconazole 2 % cream
1 applic topical BID Qty: 60 0RF
Rx Instructions:
Apply to both feet
Continued
tamsulosin 0.4 MG capsule
0.4 mg PO HS
acyclovir 200 MG capsule
400 mg PO BID
calcium carbonate-vitamin D3 1 EACH capsule
1 cap PO DAILY
levothyroxine 137 MCG tablet
137 mcg PO DAILY
Xgeva 120 mg/1.7 mL (70 mg/mL) Solution
120 mg SC MONTHLY
amlodipine 5 MG tablet
5 mg PO DAILY PRN (Reason: sbp>150)
glimepiride 1 mg Tablet
1 mg PO DAILY PRN (Reason: blood sugar>200)
apixaban 5 mg Tablet
5 mg PO BID
Ivig
30 g IV MONTHLY
Tecvayli
98.5 mg SC TH
loperamide 2 mg Capsule
2 mg PO TID PRN (Reason: diarrhea)
Discharge Orders:
Discharge Patient (As Directed); Ordered 09/05/23
Ordered By: Heather Stephens
--- NOTE | 2023-09-05 11:12 | CM ---
Home with [facility].
Plan; Home with [facility].
[2023-09-06 00:53] LABS: IgG 2531 mg/dl (700-1600)
[2023-09-06 02:05] LABS: IgA < 50 mg/dl (70-400); IgM < 25 mg/dl (40-230)
--- NOTE | 2023-09-06 10:25 | VNURNOTE ---
[facility] referral completed in [facility] after review of chart.
Liaison notified of referral by TT 09/06, patient was discharged 09/05.
[2023-09-06 22:10] LABS: Free Kappa Light Chains,Quant 392.57 mg/L (3.30-19.40); Free Lambda Light Chains,Quant <1.37 mg/L (5.71-26.30)
[2023-09-08 21:03] LABS: IgA <2 mg/dL (68-408); IgG 2632 mg/dL (768-1632); IgM <10 mg/dL (35-263)
[2023-09-08 21:15] LABS: Albumin 2.87 g/dL (3.75-5.01); Monoclonal Protein 1.84 g/dL; SPEP IFE Reflex IFE Done; Total Protein-Electrophoresis 6.9 g/dL (6.3-8.2)
== END 2023-09-05 11:37 | disposition home health service (06) | DRG 841 ==
LOC: 4 EAST ACU 21:10
PROVIDERS: Clinical Nurse Specialist Family Health; Emergency Medicine; Radiology Diagnostic Radiology; ADMITTING PHYSICIAN Hospitalist; ATTENDING PHYSICIAN Internal Medicine; CONSULT PHYSICIAN Internal Medicine Pulmonary Disease; EMERGENCY PHYSICIAN Emergency Medicine; FAMILY PHYSICIAN Family Medicine; OTHER PHYSICIAN Internal Medicine Hematology & Oncology
PROC: 0W993ZZ Drainage of Right Pleural Cavity, Percutaneous Approach (ICD-10-PCS; 2023-09-03)
DX: C90.00 Multiple myeloma not having achieved remission (principal); J90 Pleural effusion, not elsewhere classified; R64 Cachexia; Z68.1 Body mass index [BMI] 19.9 or less, adult; J98.11 Atelectasis; E03.9 Hypothyroidism, unspecified; E11.40 Type 2 diabetes mellitus with diabetic neuropathy, unspecified; E78.00 Pure hypercholesterolemia, unspecified; I10 Essential (primary) hypertension; M81.0 Age-related osteoporosis without current pathological fracture; L89.152 Pressure ulcer of sacral region, stage 2; N40.0 Benign prostatic hyperplasia without lower urinary tract symptoms; R53.83 Other fatigue; D64.9 Anemia, unspecified; K21.9 Gastro-esophageal reflux disease without esophagitis; Z87.442 Personal history of urinary calculi; Z79.890 Hormone replacement therapy; Z86.718 Personal history of other venous thrombosis and embolism; Z91.198 Patient's noncompliance with other medical treatment and regimen for other reason; Z92.21 Personal history of antineoplastic chemotherapy; Z80.3 Family history of malignant neoplasm of breast; Z80.42 Family history of malignant neoplasm of prostate; Z80.8 Family history of malignant neoplasm of other organs or systems; Z79.84 Long term (current) use of oral hypoglycemic drugs; Z79.01 Long term (current) use of anticoagulants; Z66 Do not resuscitate; Z92.3 Personal history of irradiation; Z87.891 Personal history of nicotine dependence
CPT/HCPCS: 88305; 32555; 71045; 71046; 71260; 74177; 80048; 80053; 82150; 82784; 82945; 82962; 83036; 83521; 83615; 83880; 83986; 84155; 84157; 84165; 84478; 84484; 84550; 85025; 85384; 85610; 86140; 86334; 87015; 87070; 87102; 87116; 87205; 87206; 88112; 89051; 93005; 93306; 97166; 99285; Q9967

== ENCOUNTER → 2023-09-20 10:38 | Outpatient (REF) | payer OTHER, SELFPAY ==
[2023-09-20] VITALS (7 sets, daily range): BP systolic 83–133; BP diastolic 74–87
[2023-09-20 11:03] LABS: % Basophils 1.4 % (0-2); % Eosinophils 2.8 % (0-6); % Immature Granulocytes 1.4 % (0-0.5); % Lymphocytes 13.7 % (20.5-51.1); % Monocytes 9.5 % (1.7-9.3); % Neutrophils 71.2 % (42.2-75.2); Absolute Eosinophils 0.1 10^3/uL (0-0.7); Absolute Lymphocytes 0.4 10^3/uL (1.2-3.4); Absolute Monocytes 0.3 10^3/uL (0.1-0.6); Hematocrit 28.1 % (39.0-52.0); Hemoglobin 8.8 g/dL (13.0-18.0); Mean Corp Hgb Conc. 31.3 g/dL (33.0-37.0); Mean Corpuscular Hgb 31.5 pg (27.0-31.0); Mean Corpuscular Volume 100.7 fL (80.0-94.0); Mean Platelet Volume 8.9 fL (7.4-10.4); Nucleated Red Blood Cells % 0 % (-); Platelet Count 202 10^3/uL (130-400); Red Blood Cell Count 2.79 10^6/uL (4.70-6.10); Red Cell Dist. Width 17.7 % (11.5-14.5); White Blood Cell Count 2.8 10^3/uL (4.8-10.8)
[2023-09-20 11:06] LABS: INR 1.25; PT 15.5 Sec (11.4-14.6)
[2023-09-20 11:19] LABS: Glucose - Point of Care 98 mg/dl (70-99)
[2023-09-20] MEDS: ANCEF 10 IV (11:52)
[2023-09-20 12:47] LABS: Glucose - Point of Care 102 mg/dl (70-99)
== END ==
LOC: RADI 10:38
PROVIDERS: ATTENDING PHYSICIAN Internal Medicine Hematology & Oncology; FAMILY PHYSICIAN Family Medicine
DX: J90 Pleural effusion, not elsewhere classified (principal); C90.00 Multiple myeloma not having achieved remission
CPT/HCPCS: 32550; 36415; 75989; 82962; 85025; 85610; 99152; 99153; C1729

== ENCOUNTER 2023-10-03 11:30 | Inpatient (IN) | payer OTHER, SELFPAY ==
[2023-10-03] VITALS (45 sets, daily range): BP systolic 77–143; BP diastolic 34–92
--- NOTE | 2023-10-03 08:44 | ED.GENMED ---
History of Present Illness
<Alonzo Vega DO - Last Filed: 10/03/23 14:44>
General
Chief Complaint: Blood Pressure Problem
Time Seen by Provider: 10/03/23 08:24
Travel History
Have you had any contact with someone who has COVID-19?: No
Do you have any symptoms of coronavirus? Fever > 100 degrees, chills, cough, shortness of breath, sore throat, loss of taste or smell, muscle aches, or headache?: No
<Tk Linares PA-C - Last Filed: 10/03/23 10:45>
General
Source: patient, family and ambulance crew
History of Present Illness
History of Present Illness:
78-year-old male with past medical history of multiple myeloma, diabetes, diverticulitis, has been dealing with new orthostasis presenting to the emergency department via EMS for multiple concerns including feeling lightheaded, generally unwell,
short of breath but for unknown duration of time. Patient was unable to give much history and shortly after patient arrived to the came to the emergency department and was able to provide much of the patient's history. Patient was recently
admitted at this facility around a month ago for a large left pleural effusion which was drained via thoracentesis with around 2 L of fluid being removed. About 2 weeks ago patient had an aseptic catheter placed by interventional radiology for
which a visiting nurse has been draining about 800 mL of fluid twice weekly. This morning patient had significantly increased respiratory rate and difficulty breathing. Patient's daughter is a nurse and drained about 1 L of serosanguineous fluid
from the catheter and while patient's breathing did improve somewhat the was still concerned with patient's respiratory rate and notes that he has increased pallor and has been generally unwell. Patient did follow-up with Dr. De La Fuente upon his
discharge from this facility. They have yet to resume any chemotherapy or any other treatments due to patient's ongoing weakness. Patient is presently DO NOT RESUSCITATE but is amenable to intubations if only for temporary time.
Past History
<Alonzo Vega DO - Last Filed: 10/03/23 14:44>
Past History
ED Past Medical History: Cancer, HTN, Hypercholesterolemia, NIDDM, Hypothyroidism and Other (Diverticulitis, kidney stones)
ED Past Surgical History: Tonsilectomy and Urological
Social History
Tobacco: Non-smoker
Alcohol: None
Drug: None
Personal:
Living: with family
Employment: Retired
Family History
Family History: Other (Noncontributory)
<Tk Linares PA-C - Last Filed: 10/03/23 10:45>
Review of Systems
All Other Systems: ROS reviewed and negative except as documented in HPI and ROS
<LEISA Oseguera Last Filed: 10/03/23 10:45>
Physical Exam
Physical Exam:
GENERAL: Alert , very thin, pale, unwell appearing
EYE: conjunctiva clear
NECK: Supple
ENT: o/p clr, dry mucous membranes
CARDIAC: Tachycardic rate and rhythm, no murmur
LUNGS: Diminished breath sounds at the left lung base, tachypneic, mild accessory muscle use, asept catheter noted at the anterior lateral left lower ribs
Abdomen: Soft, nontender, nondistended
NEUROLOGICAL: Alert and oriented x 3
SKIN: Warm and dry, skin intact.
MUSCULOSKELETAL: well perfused.
PSYCH: Normal and appropriate interaction.
<LEISA Oseguera Last Filed: 10/03/23 10:45>
Heart Failure Risk
Heart Failure Risk Score: Not Applicable
Heart Score for Chest Pain Patients
STEMI patient?: Not applicable
Withdrawal Assessment of Alcohol
Withdrawal Assessment Completed?: Not applicable
Course
<Alonzo Vega DO - Last Filed: 10/03/23 14:44>
Orders/Labs/Results
Orders:
Orders
10/03/23 08:31
EKG [Electrocardiogram (*1)] Urgent
Reason for Study: Vertigo / Dizzy
EKG- Treatment ONCE
10/03/23 08:34
0.9% Sodium Chloride 1000 ml [Nss] 1,700 ml IV NOW STA
CR Chest Portable - 1 View Urgent
Comment:
Reason For Exam: hypotensive
Reason Study Needs to be Portable: Patient Unstable
10/03/23 08:46
Type+Screen Urgent
Complete Blood Count/With Diff Urgent
Comprehensive Metabolic Panel Urgent
Lactic Acid Q4H
Comment: CANCEL 2nd LACTIC ACID IF 1st LACTIC ACID IS LESS THAN 2
PTT Urgent
Prothrombin Time Urgent
Blood Culture Q30M
LUL Source: Blood/Venous
Specimen Description:
10/03/23 08:48
0.9% Sodium Chloride 1000 ml [Nss] 1,200 ml IV BOLUS
10/03/23 08:49
COVID-19 Antigen Urgent
Source: Nasal Swab
Blood Culture Q30M
LUL Source: Blood/Venous
Specimen Description:
Influenza A+B Rapid Molecular Urgent
LUL Source: Nasal Swab
Specimen Description:
10/03/23 09:08
Body Fluid Cell Count Urgent
What is the Body Fluid: pleural fluid
Date Specimen was Collected: 10/03/23
Time Specimen was Collected: 09:06
Body Fluid Glucose [S] Urgent
Body Fluid Ldh [S] Urgent
Body Fluid Total Protein [S] Urgent
Fluid Culture with Gram Stain Urgent
LUL Source: Pleural Fluid
Specimen Description:
Date Specimen was Collected: 10/03/23
Time Specimen was Collected: 09:06
10/03/23 09:16
Piperacillin/Tazo 3.375 Gram [Zosyn] 3.375 gram in 50 ml IV NOW
10/03/23 09:23
Vancomycin [Vancocin] 1,500 mg 0.9% Sodium Chloride [Nss] 20 ml 0.9% Sodium Chloride 250 ml [Nss] 250 ml IV NOW
10/03/23 09:44
Echo 2D MMode Color/Doppler Urgent
Reason for Study: mediastinal shift
Dexamethasone Sod Phosphate [Decadron] 10 mg IV NOW STA
10/03/23 10:45
NORepinephrine 4 MG/250 ML [Levophed] 4 mg in 250 ml IV PER PROTOCOL
Initial dose in mcg/min, then titrate:: 5
Titrate to keep:: MAP > 65 mmHg
Titrate by mcg/min:: 1-2 mcg/min
Frequency of titrations (minutes):: 5
Maximum dose in ICU in mcg/min:: 30
Maximum dose in IMU in mcg/min:: 8
Maximum dose in IVU in mcg/min:: 4
Begin to taper infusion when:: Remained at goal for 4hrs
Taper by mcg/min:: 1-2 mcg/min
Frequency of taper (minutes) if patient maintains goal:: 30
Taper to off?: Yes
If infusion off & no longer maintaining goal:: Contact Provider
10/03/23 10:59
Admit/Transfer Patient As Directed
Co-Sign Provider:
Level of Care: Inpatient admission
Assign to:: IMU- Intermediate Care
Physician / Group: Gulshan
Diagnosis: Hypotension requiring pressors
Reason for Hospitalization: See progress note
Expected length of stay greater than two midnights?: Yes
ELOS- Estimated Length of Stay in days: 4
I certify the patient meets the requirements for IP care: Yes
10/03/23 11:00
Code Status As Directed
Resuscitation Status: Do not resuscitate
Reached after discussion with pt or family/Healthcare POA: Yes
Physician note:: Discussed with and his wishes are no CPR or electrical cardioversion but okay for
intubation for any quick reversible acute medical issues.
DNR Bracelet Application ONCE
10/03/23 11:08
Urinalysis Reflex To Culture Urgent
Date Specimen was Collected: 10/03/23
Time Specimen was Collected: 11:04
Urine Microscopic Reflex Cult Urgent
Urine Culture Urgent
LUL Source: U
Specimen Description:
Date Specimen was Collected: 10/03/23
Time Specimen was Collected: 11:04
10/03/23 12:13
0.9% Sodium Chloride 1000 ml [Nss] 1,000 ml IV 125 mls/hr
Acetaminophen [Tylenol] 650 mg PO Q4HPRN PRN
Dextrose 50%-Water [Dextrose 50% Syringe] 12.5 grams IV [id number] PRN
Glucagon [GlucaGen] 1 mg IM PRN PRN
Insulin Aspart Corrective Low [Novolog Flexpen-Low Resistance] See Protocol SC AC
Loperamide [Imodium] 2 mg PO TIDPRN PRN
Piperacillin/Tazo 3.375 Gram [Zosyn] 3.375 gram in 50 ml IV Q6H
VANCOMYCIN Pharmacy to Dose [VANCOCIN Pharmacy to Dose] 1 each Pharmacy To Prepare [Call Pharmacy To Prepare] 0 ml IV PER PROTOCOL
10/03/23 12:13
Add On- LAB Routine
Tests Added?: Procalcitonin - sepsis indication; troponin, BNP
HEMATOLOGY CONSULT Routine
Consulting Provider: Heather Desai
Was physician already notified: Yes
Reason for consult: neutropenia
INFECTIOUS DISEASE CONSULT Routine
Consulting Provider: Elizabeth Burr
Was physician already notified: Yes
Reason for consult: shock ?septic
PULMONARY CONSULT Routine
Consulting Provider: Letty Gore
Was physician already notified: Yes
Reason for consult: Recurrent L pleural effusion
Bedside Glucose Monitoring As Directed
Frequency: AC&HS
Comment: Change to q6h if pt on TPN, tube feeding or not eating
I&O [Intake/ Output] As Directed
Frequency: q12h
Oxygen Therapy [O2 Therapy] [RESP] Routine
Titrate/Wean O2 to maintain O2 sat greater than (%): 93
DX Deep Vein Thrombosis Video Routine
10/03/23 13:28
Lactic Acid Q4H
Comment: CANCEL 2nd LACTIC ACID IF 1st LACTIC ACID IS LESS THAN 2
10/03/23 16:00
Heparin 5,000 units SC Q8
Hydrocortisone Sod Succinate [Solu-Cortef] 100 mg IV Q8
10/03/23 17:00
Midodrine [ProAmatine] 10 mg PO TID @ 0800,1200,1700
10/03/23 22:00
Tamsulosin [Flomax] 0.4 mg PO HS
10/04/23 06:00
Basic Metabolic Panel IN AM
Complete Blood Count/With Diff IN AM
Glycohemoglobin (HgbA1c) IN AM
10/04/23 07:00
Levothyroxine [Synthroid] 137 mcg PO DAILY@0700
Abnormal Lab Results
10/03/23 10/03/23
08:46 11:08
WBC 0.8 L* 10^3/uL
(4.8-10.8)
RBC 2.94 L 10^6/uL
(4.70-6.10)
Hgb 9.2 L g/dL
(13.0-18.0)
Hct 28.2 L %
(39.0-52.0)
MCV 95.9 H fL
(80.0-94.0)
MCH 31.3 H pg
(27.0-31.0)
MCHC 32.6 L g/dL
(33.0-37.0)
RDW 16.3 H %
(11.5-14.5)
Absolute Neuts (auto) 0.6 L* 10^3/uL
(1.4-6.5)
Absolute Lymphs (auto) 0.1 L 10^3/uL
(1.2-3.4)
Absolute Monos (auto) 0.0 L 10^3/uL
(0.1-0.6)
Immature Gran % 1.3 H %
(0-0.5)
Neutrophils % 82.1 H %
(42.2-75.2)
Lymphocytes % 11.5 L %
(20.5-51.1)
PT 32.4 H Sec
(11.4-14.6)
APTT 37.4 H Sec
(23.4-35.0)
Chloride 109 H mmol/L
(98-107)
Carbon Dioxide 21 L mmol/L
(22-30)
BUN 38 H mg/dl
(9-20)
Creatinine 1.4 H mg/dL
(0.7-1.3)
Glucose 139 H mg/dl
(70-99)
Lactic Acid 4.5 H* mmol/L
(0.7-2.0)
Albumin 2.7 L g/dl
(3.5-5.0)
Urine Ketones Trace A
(Negative)
Ur Occult Blood Reflex Trace A
(Negative)
Urine Bilirubin 1+ A
(Negative)
Leukocyte Esterase Rfl 1+ A
(Negative)
Urine RBC 3-6 A /HPF
(0-2)
Urine Bacteria (Reflex) Many A
(Negative)
10/03/23 08:46
10/03/23 08:46
Vital Signs
Initial and Last Documented VS:
Initial Vital Signs
Temp Pulse Resp BP Pulse Ox
98.3 F 112 20 82/56 96
10/03/23 08:30 10/03/23 08:30 10/03/23 08:30 10/03/23 08:30 10/03/23 08:30
Last Documented Vital Signs
Temp Pulse Resp BP Pulse Ox
102.8 F H 111 34 101/63 97
10/03/23 12:16 10/03/23 11:56 10/03/23 11:56 10/03/23 11:45 10/03/23 11:45
<Tk Linares PA-C - Last Filed: 10/03/23 10:45>
Orders/Labs/Results
Orders:
Orders
10/03/23 08:31
EKG [Electrocardiogram (*1)] Urgent
Reason for Study: Vertigo / Dizzy
EKG- Treatment ONCE
10/03/23 08:34
0.9% Sodium Chloride 1000 ml [Nss] 1,700 ml IV NOW STA
CR Chest Portable - 1 View Urgent
Comment:
Reason For Exam: hypotensive
Reason Study Needs to be Portable: Patient Unstable
10/03/23 08:46
Type+Screen Urgent
Complete Blood Count/With Diff Urgent
Comprehensive Metabolic Panel Urgent
Lactic Acid Q4H
Comment: CANCEL 2nd LACTIC ACID IF 1st LACTIC ACID IS LESS THAN 2
PTT Urgent
Prothrombin Time Urgent
Blood Culture Q30M
LUL Source: Blood/Venous
Specimen Description:
10/03/23 08:48
0.9% Sodium Chloride 1000 ml [Nss] 1,200 ml IV BOLUS
10/03/23 08:49
COVID-19 Antigen Urgent
Source: Nasal Swab
Blood Culture Q30M
LUL Source: Blood/Venous
Specimen Description:
Influenza A+B Rapid Molecular Urgent
LUL Source: Nasal Swab
Specimen Description:
10/03/23 09:08
Body Fluid Cell Count Urgent
What is the Body Fluid: pleural fluid
Date Specimen was Collected: 10/03/23
Time Specimen was Collected: 09:06
Body Fluid Glucose [S] Urgent
Body Fluid Ldh [S] Urgent
Body Fluid Total Protein [S] Urgent
Fluid Culture with Gram Stain Urgent
LUL Source: Pleural Fluid
Specimen Description:
Date Specimen was Collected: 10/03/23
Time Specimen was Collected: 09:06
10/03/23 09:16
Piperacillin/Tazo 3.375 Gram [Zosyn] 3.375 gram in 50 ml IV NOW
10/03/23 09:23
Vancomycin [Vancocin] 1,500 mg 0.9% Sodium Chloride [Nss] 20 ml 0.9% Sodium Chloride 250 ml [Nss] 250 ml IV NOW
10/03/23 09:44
Echo 2D MMode Color/Doppler Urgent
Reason for Study: mediastinal shift
Dexamethasone Sod Phosphate [Decadron] 10 mg IV NOW STA
10/03/23 10:45
NORepinephrine 4 MG/250 ML [Levophed] 4 mg in 250 ml IV PER PROTOCOL
Initial dose in mcg/min, then titrate:: 5
Titrate to keep:: MAP > 65 mmHg
Titrate by mcg/min:: 1-2 mcg/min
Frequency of titrations (minutes):: 5
Maximum dose in ICU in mcg/min:: 30
Maximum dose in IMU in mcg/min:: 8
Maximum dose in IVU in mcg/min:: 4
Begin to taper infusion when:: Remained at goal for 4hrs
Taper by mcg/min:: 1-2 mcg/min
Frequency of taper (minutes) if patient maintains goal:: 30
Taper to off?: Yes
If infusion off & no longer maintaining goal:: Contact Provider
10/03/23 10:59
Admit/Transfer Patient As Directed
Co-Sign Provider:
Level of Care: Inpatient admission
Assign to:: IMU- Intermediate Care
Physician / Group: Gulshan
Diagnosis: Hypotension requiring pressors
Reason for Hospitalization: See progress note
Expected length of stay greater than two midnights?: Yes
ELOS- Estimated Length of Stay in days: 4
I certify the patient meets the requirements for IP care: Yes
10/03/23 11:00
Code Status As Directed
Resuscitation Status: Do not resuscitate
Reached after discussion with pt or family/Healthcare POA: Yes
Physician note:: Discussed with and his wishes are no CPR or electrical cardioversion but okay for
intubation for any quick reversible acute medical issues.
DNR Bracelet Application ONCE
10/03/23 11:08
Urinalysis Reflex To Culture Urgent
Date Specimen was Collected: 10/03/23
Time Specimen was Collected: 11:04
Urine Microscopic Reflex Cult Urgent
Urine Culture Urgent
LUL Source: U
Specimen Description:
Date Specimen was Collected: 10/03/23
Time Specimen was Collected: 11:04
10/03/23 12:13
0.9% Sodium Chloride 1000 ml [Nss] 1,000 ml IV 125 mls/hr
Acetaminophen [Tylenol] 650 mg PO Q4HPRN PRN
Dextrose 50%-Water [Dextrose 50% Syringe] 12.5 grams IV [id number] PRN
Glucagon [GlucaGen] 1 mg IM PRN PRN
Insulin Aspart Corrective Low [Novolog Flexpen-Low Resistance] See Protocol SC AC
Loperamide [Imodium] 2 mg PO TIDPRN PRN
Piperacillin/Tazo 3.375 Gram [Zosyn] 3.375 gram in 50 ml IV Q6H
VANCOMYCIN Pharmacy to Dose [VANCOCIN Pharmacy to Dose] 1 each Pharmacy To Prepare [Call Pharmacy To Prepare] 0 ml IV PER PROTOCOL
10/03/23 12:13
Add On- LAB Routine
Tests Added?: Procalcitonin - sepsis indication; troponin, BNP
HEMATOLOGY CONSULT Routine
Consulting Provider: Heather Desai
Was physician already notified: Yes
Reason for consult: neutropenia
INFECTIOUS DISEASE CONSULT Routine
Consulting Provider: Elizabeth Burr
Was physician already notified: Yes
Reason for consult: shock ?septic
PULMONARY CONSULT Routine
Consulting Provider: Letty Gore
Was physician already notified: Yes
Reason for consult: Recurrent L pleural effusion
Bedside Glucose Monitoring As Directed
Frequency: AC&HS
Comment: Change to q6h if pt on TPN, tube feeding or not eating
I&O [Intake/ Output] As Directed
Frequency: q12h
Oxygen Therapy [O2 Therapy] [RESP] Routine
Titrate/Wean O2 to maintain O2 sat greater than (%): 93
DX Deep Vein Thrombosis Video Routine
10/03/23 13:28
Lactic Acid Q4H
Comment: CANCEL 2nd LACTIC ACID IF 1st LACTIC ACID IS LESS THAN 2
10/03/23 16:00
Heparin 5,000 units SC Q8
Hydrocortisone Sod Succinate [Solu-Cortef] 100 mg IV Q8
10/03/23 17:00
Midodrine [ProAmatine] 10 mg PO TID @ 0800,1200,1700
10/03/23 22:00
Tamsulosin [Flomax] 0.4 mg PO HS
10/04/23 06:00
Basic Metabolic Panel IN AM
Complete Blood Count/With Diff IN AM
Glycohemoglobin (HgbA1c) IN AM
10/04/23 07:00
Levothyroxine [Synthroid] 137 mcg PO DAILY@0700
Abnormal Lab Results
10/03/23 10/03/23
08:46 11:08
WBC 0.8 L* 10^3/uL
(4.8-10.8)
RBC 2.94 L 10^6/uL
(4.70-6.10)
Hgb 9.2 L g/dL
(13.0-18.0)
Hct 28.2 L %
(39.0-52.0)
MCV 95.9 H fL
(80.0-94.0)
MCH 31.3 H pg
(27.0-31.0)
MCHC 32.6 L g/dL
(33.0-37.0)
RDW 16.3 H %
(11.5-14.5)
Absolute Neuts (auto) 0.6 L* 10^3/uL
(1.4-6.5)
Absolute Lymphs (auto) 0.1 L 10^3/uL
(1.2-3.4)
Absolute Monos (auto) 0.0 L 10^3/uL
(0.1-0.6)
Immature Gran % 1.3 H %
(0-0.5)
Neutrophils % 82.1 H %
(42.2-75.2)
Lymphocytes % 11.5 L %
(20.5-51.1)
PT 32.4 H Sec
(11.4-14.6)
APTT 37.4 H Sec
(23.4-35.0)
Chloride 109 H mmol/L
(98-107)
Carbon Dioxide 21 L mmol/L
(22-30)
BUN 38 H mg/dl
(9-20)
Creatinine 1.4 H mg/dL
(0.7-1.3)
Glucose 139 H mg/dl
(70-99)
Lactic Acid 4.5 H* mmol/L
(0.7-2.0)
Albumin 2.7 L g/dl
(3.5-5.0)
Urine Ketones Trace A
(Negative)
Ur Occult Blood Reflex Trace A
(Negative)
Urine Bilirubin 1+ A
(Negative)
Leukocyte Esterase Rfl 1+ A
(Negative)
Urine RBC 3-6 A /HPF
(0-2)
Urine Bacteria (Reflex) Many A
(Negative)
10/03/23 08:46
10/03/23 08:46
Vital Signs
Initial and Last Documented VS:
Initial Vital Signs
Temp Pulse Resp BP Pulse Ox
98.3 F 112 20 82/56 96
10/03/23 08:30 10/03/23 08:30 10/03/23 08:30 10/03/23 08:30 10/03/23 08:30
Last Documented Vital Signs
Temp Pulse Resp BP Pulse Ox
102.8 F H 111 34 101/63 97
10/03/23 12:16 10/03/23 11:56 10/03/23 11:56 10/03/23 11:45 10/03/23 11:45
<Tk Linares PA-C - Last Filed: 10/03/23 10:45>
MDM/Problems Addressed
Differential Diagnosis Includes:
Anemia, sepsis, electrolyte disturbance, recurring effusion, pneumonia, worsening progression of cancerous process
MDM/Problems Addressed:
78-year-old male with past medical history multiple myeloma, has had worsening complications over the last month or so, presenting to the emergency department after he was reportedly significantly more short of breath today. Daughter was able to
remove around 1 L of what is described to be serosanguineous fluid. Patient still has slightly diminished lung sounds at the left base. Patient arrived to the emergency department with EMS reporting his systolic pressure was in the 60s. After 500
mL bolus of fluids pressure is now persistently around 80/50. Patient's sepsis fluid bolus would be 1700 mL so we will give an additional 1200 mL fluid bolus for patient's hypotension. Labs, chest x-ray, urine ordered. Based off presentation I do
anticipate admission. is in agreement with plan.
Chronic conditions affecting care: Cancer
Acute Exacerbation and/or Progression of Chronic Illness: Cancer
<Alonzo Vega DO - Last Filed: 10/03/23 14:44>
*Critical Care Note
Total Time (30-74mins, 75-104mins- exclusive of procedures): 40 minutes
Data Reviewed
Further Testing Considered But Not Given:
Consider chest CT but chest x-ray noted
<Tk Linares PA-C - Last Filed: 10/03/23 10:45>
*Radiology
Radiology exam reviewed: preliminary read by ED provider (Large left-sided pleural effusion)
*Pulse Oximetry
Patient hypoxic: no
*EKG
Interpreted by ED Provider?: Yes
Comparison EKG: no changes
Heart Rate: 112
Rate: tachycardiac
Rhythm: sinus
Trenary: normal axis
Ischemia: no ischemia
*Residential Sales [employer] Interpretation
Rate: tachycardiac
Rhythm: sinus
*Critical Care Note
Total Time (30-74mins, 75-104mins- exclusive of procedures): 30
comment:
Critical care statement: A total of 30 minutes of critical care time was provided for this patient. This includes management of unstable vital signs, evaluation of the patient at bedside, reviewing the patient's pertinent medical records, discussion
with consultants, review of old EKGs and review of pertinent medical records. This time with separate from time utilized to perform the aforementioned documented procedures
Data Reviewed
Review of Other/Old Records Reveals: Labs, Records and Discharge Summary
Source: patient, records, spouse and ambulance crew
<Tk Linares PA-C - Last Filed: 10/03/23 10:45>
Patient Management
Discussion with other providers: Hospitalist and Shirt Hemmer
Escalation/DeEscalation of care consider admission/obs:
Due to patient's current condition I notified on-call pulmonary team who will come to the emergency department to evaluate patient. Currently recommending given a pulse dose of steroids and a 2D echocardiogram given chest x-ray findings.
Hospitalist is aware and accepts patient for continued evaluation and treatment. They were also made aware of the pulmonary team's recommendations.
10/03/2023 1045 AM: Prior to hospitalist evaluating the patient I was informed by nursing staff that after patient's fluid resuscitation with good response his pressure started to drop again with a systolic now in the 70s. Will start temporary
peripheral Levophed infusion for blood pressure management until patient can get to the floor and a more permanent solution can be discussed with the inpatient team for management of his hypotension.
ED Attending Note
<Alonzo Vega DO - Last Filed: 10/03/23 14:44>
ED Attending Note
Patient seen and examined by attending physician: Yes
I performed the substantive portion of visit, reviewed & personally made and approve the management plan that is documented in note by myself or VETO.: Yes
ED Attending Note:
Unfortunate 78-year-old male with history of multi myeloma and left pleural tube. On exam 300 cc of fluid was withdrawn in light of his dyspnea. It was bloody but quite malodorous. Blood pressure noted. Treat with broad-spectrum antibiotics.
Certainly needs consultation with pulmonology. Admit
-
Portions of this chart may have been created with voice recognition software.� Occasional wrong word or��sound alike� substitutions may have occurred due to the inherent limitations of voice recognition software.
Discharge Plan
Departure
Patient Disposition: Admit
Date of Disposition: 10/03/23
Time of Disposition: 09:25
Presentation/result/management discussed w/ accepting MD/DO: Hospitalist
Discharge Problem:
Pleural effusion, left, Anemia, Hypotension, ROXANA (acute kidney injury)
Interventions
Interventions:
*Risk Screen - Suicide Last Done: 10/03/23 08:44
*General Assessment Last Done: 10/03/23 08:44
*Neglect/Abuse Screening Last Done: 10/03/23 08:44
*ED COVID-19 Vaccine History Last Done: 10/03/23 08:43
*Nursing Disposition Last Done: 10/03/23 12:04
ED- Cardiac Assessment Last Done: 10/03/23 08:45
ED- Neurological Assessment Last Done: 10/03/23 08:45
ED- Pulmonary Assessment Last Done: 10/03/23 08:45
Discharge Date and Time
Discharge Date/Time: 10/03/23 12:08
[2023-10-03] MEDS: NSS 1200 IV (08:48)
[2023-10-03 09:11] LABS: % Immature Granulocytes 1.3 % (0-0.5); % Lymphocytes 11.5 % (20.5-51.1); % Monocytes 5.1 % (1.7-9.3); % Neutrophils 82.1 % (42.2-75.2); Absolute Lymphocytes 0.1 10^3/uL (1.2-3.4); Hematocrit 28.2 % (39.0-52.0); Hemoglobin 9.2 g/dL (13.0-18.0); Mean Corp Hgb Conc. 32.6 g/dL (33.0-37.0); Mean Corpuscular Hgb 31.3 pg (27.0-31.0); Mean Corpuscular Volume 95.9 fL (80.0-94.0); Mean Platelet Volume 9.3 fL (7.4-10.4); Nucleated Red Blood Cells % 0 % (-); Platelet Count 255 10^3/uL (130-400); Red Blood Cell Count 2.94 10^6/uL (4.70-6.10); Red Cell Dist. Width 16.3 % (11.5-14.5)
[2023-10-03 09:14] LABS: INR 3.16; PT 32.4 Sec (11.4-14.6)
[2023-10-03 09:15] LABS: APTT 37.4 Sec (23.4-35.0)
[2023-10-03 09:16] LABS: ALT (SGPT) 13 U/L (0-50); AST (SGOT) 19 U/L (17-59); Albumin 2.7 g/dl (3.5-5.0); Alkaline Phosphatase 61 U/L (38-126); Blood Urea Nitrogen 38 mg/dl (9-20); Calcium 8.6 mg/dl (8.4-10.2); Carbon Dioxide 21 mmol/L (22-30); Chloride 109 mmol/L (98-107); Glucose 139 mg/dl (70-99); Potassium 4.1 mmol/L (3.5-5.1); Sodium 137 mmol/L (135-145); Total Bilirubin 0.9 mg/dl (0.2-1.3); Total Protein 6.7 g/dl (6.3-8.2); eGFR 51.13
[2023-10-03 09:17] LABS: White Blood Cell Count 0.8 10^3/uL (4.8-10.8)
[2023-10-03 09:18] LABS: Lactic Acid 4.5 mmol/L (0.7-2.0)
[2023-10-03] MEDS: ZOSYN 50 IV ×3 (09:19→21:13)
[2023-10-03 09:22] LABS: COVID-19 Antigen Negative (Negative)
[2023-10-03] MEDS: VANCOCIN 300 MG IV (09:43)
[2023-10-03] MEDS: VANCOCIN 300 ML IV (09:43)
[2023-10-03] MEDS: DECADRON 10 MG IV (09:50)
[2023-10-03 10:02] LABS: Body Fluid Mononuclear 23.3 %; Body Fluid Polymorphonuclear 76.7 %; Body Fluid WBC 4976 /CUMM
--- NOTE | 2023-10-03 10:14 | CON.INTV ---
Consultation
Consultation Request
Date/Time Consultation Requested: 10/03
Date/Time Consultation Performed: 10/03
Reason for Consultation: Critical care
Medical History
-
History of Present Illness:
History obtained from the chart, patient, at bedside and daughter by phone. Outpatient records also reviewed. 78-year-old male with complex medical history including progressive multiple myeloma ongoing chemotherapy/IVIG last therapy about 4
weeks ago treated with steroids during chemotherapy regimen, recent left thoracentesis hospitalization in August 2023, Pleurx catheter placement with drainage at home about 800 cc bloody in nature. Patient presents to [facility] because of
increasing shortness of breath. Had 1 L drained earlier today with some improvement. Upon arrival to [facility], afebrile, pulse 112, blood pressure 82/56, 96%, breathing at 20. Creatinine noted to be 1.4, white count 0.8, hemoglobin
9.2, platelets 255. Patient had a chest x-ray which showed persistent/worsened left pleural effusion. Patient was given IV Zosyn/vancomycin, IV fluid bolus. Additional 300 cc were drained in the ED via Pleurx catheter but patient became
hypotensive thereafter. We were asked to see patient emergently by ED staff
Upon my arrival, patient is lying flat, mildly tachypneic, heart rate in the 120s. He denies chest pain, nausea, abdominal pain, falls, syncope. Fatigued appearing, cachectic. at bedside.
.
PMH: Large left pleural effusion/bloody status post thoracentesis, Pleurx catheter placement September 2023, bilateral lower extremity DVT February 2023, COVID November 2020, multiple myeloma advanced on chemotherapy last course 08/19/2023 with multiple bony
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
Past Medical History
Past Medical History: None (See above)
Past Surgical History: None (See above)
Social History
Tobacco: Former Smoker (Quit many years ago, likely 30+ pack year)
Alcohol: None
Drug: None
Personal:
Living: With Family
Employment: Retired
Family History
Family History: Reviewed & Not Pertinent
Allergies / Home Medications
Allergies
Allergy/AdvReac Type Severity Reaction Status Date / Time
No Known Allergies Allergy Verified 10/03/23 08:44
Home Medications
Medication Instructions Recorded Confirmed Last Taken Type
tamsulosin 0.4 mg capsule 0.4 mg PO HS Urinary issue 12/02/20 10/03/23 10/02/23 History
levothyroxine 137 mcg tablet 137 mcg PO DAILY Thyroid 12/20/20 10/03/23 10/02/23 History
apixaban 5 mg tablet 5 mg PO BID Blood Clot 09/02/23 10/03/23 10/02/23 History
Prevention/Tx
glimepiride 1 mg tablet 1 mg PO DAILY PRN blood sugar>200 09/02/23 10/03/23 Unknown History
loperamide 2 mg capsule 2 mg PO TID PRN diarrhea 09/03/23 10/03/23 Unknown History
midodrine 10 mg tablet 10 mg PO TID 09/20/23 10/03/23 10/02/23 History
Review of Systems
-
History Source: Family
All other systems: Negative unless noted
Vitals / Labs / Diagnostic Testing
Vital Signs
Temp Pulse Resp BP Pulse Ox
98.3 F 121 36 123/83 97
10/03/23 08:30 10/03/23 09:51 10/03/23 09:51 10/03/23 09:51 10/03/23 09:51
Lab Data
10/03/23 08:46
10/03/23 08:46
Laboratory Results
10/03/23
08:46
PT 32.4 H
INR 3.16
APTT 37.4 H
Microbiology
10/03/23 08:49 Nasal Swab Influenza Types A & B (PRO) - Final
Negative for Influenza A & B, NAAT
Negative results must be combined with clinical observations
and patient history.
Nucleic Acid Amplification test (NAAT)performed on the
[employer] platform.
Diagnostic Testing:
Physical Exam
-
HEENT: Normocephalic, Anicteric and Other (Cachectic appearing)
Cardiovascular: S1/S2, Regular Rhythm (Tachycardic), Murmur (n), Rub (n) and Peripheral Edema (n)
Respiratory: Wheeze (n), Rales (n), Rhonchi (n), Non-Labored Respirations and Other (Decreased left side, no crepitus, no egophony)
GI: Soft, Non Distended and Non Tender
Neurology: Awake, Alert, Oriented and No Motor Deficits (Generally weak, moves all extremities)
Skin: Good Color (Pallorous) and Other (No skin rash)
General: Comfortable (Lying flat)
Assessment
-
78-year-old male with history of progressive multiple myeloma, chemotherapy/IVIG, left pleural effusion status post Pleurx catheter, diabetes, DVT on Eliquis therapy presents with progressive shortness of breath, hypotension and worsening left
pleural effusion per my review. Asked to see patient emergently by ED staff 10/02/2023
Hypotension, initially responded to IV fluids
Now requiring pressors
Likely multifactorial cause (sepsis, prerenal, possible adrenal insufficiency, bleeding)
Large left pleural effusion, progressive
Mediastinal shift per my review
Left Pleurx catheter placement 09/20/2023
Drainage Wednesday/Wednesday, 800 cc/bloody
Progressive multiple myeloma ([place])
Advanced MM: on teclistamab s/p several cycles (last 08/19)
Large lytic lesion right iliac bone secondary to multiple myeloma
L4-5 chronic compression fracture secondary to multiple myeloma
R arm plasmacytoma s/p palliative XRT 2016
Previous biopsy proven plasma cell neoplasm of abdominal wall and supraclavicular region
Has not achieved a significant positive response to current treatment
Monthly IVIG
Conditions present prior to admission
Bilateral KULWANT DVT February 2023, on apixaban
Diabetes type 2 with neuropathy
Osteoporosis
Hypertension
Hypothyroidism
Hyperlipidemia
Diverticulosis
Renal calculi
BPH
Hepatic hemangioma
Chronic anemia
Former smoker-quit many years ago
Tonsillectomy/urologic surgery
Stage II sacral decubitus ulcer
Cachexia
DNR
Plan/recommendations
At this time, patient appears to be improved after IV fluid, improvement in blood pressure with systolic pressure 140s
Blood pressure decreased to 70s, requiring initiation of pressors
Chest exam with decreased breath sounds on the left side
I am concerned regarding possible mediastinal shift
Given bloody nature of pleural effusion, multiple chest metastases, concerned about possible worsening bleeding in the pleural space
Differential also includes sepsis, cardiac, adrenal insufficiency, prerenal
Moving forward
Would recommend resuming IV fluids, boluses as needed
Echocardiogram has been ordered. Specifically, would like to rule out worsening pericardial effusion, RV dysfunction, RV pressures
Panculture. Last course of chemotherapy more than a month ago. Per , received steroids with chemotherapy
Empiric stress dose steroids
Agree with broad-spectrum antibiotics. ID has been consulted
With regards to left Pleurx catheter, would avoid any additional drainage at this time unless absolutely necessary for respiratory issues
There is a possibility that one of his chest lesions is bleeding more causing mediastinal shift, hypotension and worsening effusion
Despite drainage as outpatient, appears to be worse per my review
With regards to elevated, would hold for now
Follow hemoglobin
Sequential teds for DVT prophylaxis
Oncology has been consulted
Depending on how he does, may need to transition to Lovenox injections. Will touch base with oncology
The above was reviewed at length with patient, and daughter who is a critical care nurse at [employer] by phone
Confirmed DNR status. To me patient did not want to be on the ventilator. However I encouraged him to discuss this with his family/daughter
No shock, no CPR
Reviewed with critical care nursing, ED nursing, ED staff, primary service
Reviewed at length with and daughter by phone
Will follow
TCCT 35 min
Diagnostic Data
TTE 09-02-23: small pericardial effusion. Normal biventricular function
[2023-10-03 10:25] LABS: Absolute Neutrophils 0.6 10^3/uL (1.4-6.5)
[2023-10-03 10:27] LABS: Body Fluid Second Tech BP
[2023-10-03] MEDS: LEVOPHED 250 IV (10:54)
--- NOTE | 2023-10-03 11:16 | HPS.HSE ---
Family Physician
-
Family Physician: Sanket Thornton
Chief Complaint
-
Increasing shortness of breath and generally not feeling well
History of Present Illness
Patient with diagnosis of multiple myeloma last chemotherapy in August. Chemotherapy is on hold because of his generalized weakness.
He has recurrent pleural effusion and got a left-sided Pleurx catheter. He was getting drained 800 cc twice a week. This morning he was struggling to breathe. Daughter drained 1 L. He was still not comfortable with his breathing though improved.
So was brought to the hospital. Another 300 mL was drawn from the left hemithorax. It was bloody. According to he is more comfortable now.
He has been generally unwell. Patient is very weak and not much participating in the conversation. He is alert and oriented.
His blood pressure was noted to be low along with severe lactic acidosis and had weight-based IV fluids with improvement but then dropped again. Currently on Levophed. does not think he has any prior history of cardiac disease.
He always feels cold but there are no fevers at home.
Patient able to give some history but not much conversational.
He denies any lightheadedness, dizziness. No sore throat, cough, shortness of breath currently, chest pain.
No nausea or vomiting. He has a chronic diarrhea for which he takes Imodium and that has not changed.
Denies any dysuria frequency of urine.
Medical History
Past Medical History
Past Medical History: Reports Cancer (Multiple myeloma), HTN, Hypercholesterolemia, Hypothyroidism and Other (Recurrent pleural effusion; history of DVT on Eliquis)
Past Surgical History: Reports Tonsilectomy and Other (Left Pleurx catheter)
Social History
Tobacco: Non-smoker
Alcohol: None
Drug: None
Personal:
Living: With Family
Family History
Family History: Not pertinent
Allergies / Home Medications
Allergies reflects when Allergies were last updated in [employer].
Home Medications with original date entered in [employer]
Allergy/Medication List:
Allergies
Allergy/AdvReac Type Severity Reaction Status Date / Time
No Known Allergies Allergy Verified 10/03/23 08:44
Home Medications
tamsulosin 0.4 mg capsule 0.4 mg PO HS Urinary issue 12/02/20
levothyroxine 137 mcg tablet 137 mcg PO DAILY Thyroid 12/20/20
apixaban 5 mg tablet 5 mg PO BID Blood Clot Prevention/Tx 09/02/23
glimepiride 1 mg tablet 1 mg PO DAILY PRN blood sugar>200 09/02/23
loperamide 2 mg capsule 2 mg PO TID PRN diarrhea 09/03/23
midodrine 10 mg tablet 10 mg PO TID 09/20/23
Review of Systems
-
A 12 point ROS was completed and negative except as noted: Yes
Physical Exam
Vital Signs
Vital Signs
Temp Pulse Resp BP Pulse Ox
98.3 F 105 31 77/49 99
10/03/23 08:30 10/03/23 10:30 10/03/23 10:30 10/03/23 10:30 10/03/23 10:15
Physical Exam
General: No Apparent Distress and Comfortable
HEENT: Moist mucous membranes
Respiratory: Non Labored Respirations and Decreased Breath Sounds (LEFT BASE); No Wheezes or Accessory Resp Muscle Use
Cardiac: S1/S2 and Regular Rhythm; No JVD
GI: Soft and Non Tender
Musculoskeletal: No Edema
Neuro: AO x 3 and No Motor Deficits; No Slurred Speech or Facial Droop
Psych: Calm
Laboratory Results
-
10/03/23 08:46
10/03/23 08:46
Laboratory Results
PT 32.4 Sec (11.4-14.6) H 10/03/23 08:46
INR 3.16 10/03/23 08:46
APTT 37.4 Sec (23.4-35.0) H 10/03/23 08:46
Lactic Acid 4.5 mmol/L (0.7-2.0) H* 10/03/23 08:46
Total Bilirubin 0.9 mg/dl (0.2-1.3) 10/03/23 08:46
AST 19 U/L (17-59) 10/03/23 08:46
ALT 13 U/L (0-50) 10/03/23 08:46
Alkaline Phosphatase 61 U/L (38-126) 10/03/23 08:46
Data Reviewed
-
Diagnostic Radiology: Report Reviewed by me (CXR)
Lab Data: Labs Reviewed by me
Impression/Plan
-
Clinical shock-severe lactic acidosis noted which I suspect secondary to hypotension. Abdomen benign. Rule out sepsis. Patient responded to IV fluids but recurrent hypotension now requiring Levophed. Admit to IMU. Continue with IV fluid support.
Patient will have blood cultures and fluid cultures drawn. Started on broad-spectrum antibiotics. Consult ID.
Follow serial lactic acid
Check an echocardiogram to rule out any cardiac reasoning for hypertension. Not known to have cardiac disease.
Currently not on steroids. He had a chemotherapy for multiple myeloma last month. Started empirical steroids for shock.
Respiratory distress-suspect secondary to his pleural effusion. Much better after 1.3 L drawn so far today. Rapid reaccumulation and large reaccumulation is concerning. Rule out infection. Rule out cardiac reasons. Continue with left Pleurx
catheter drainage as needed for shortness of breath. Continue with oxygen support.
Multiple myeloma-chemotherapy currently on hold.
Patient noted to be neutropenic without recent chemo.
Consult oncology.
History of DVT on Eliquis
Hold Eliquis with hemorrhagic pleural fluid. H&H is stable. Cover with subcutaneous heparin for DVT prophylaxis. Will revisit the Eliquis depending on his H&H and pleural fluid nature.
Acute kidney injury-creatinine elevation noted. Suspect probably volume related/hemodynamics. Continue with fluids and vasopressors and follow creatinine closely.
Discussed with at bedside-DNR but okay for intubation for any reversible acute medical issues, not for prolonged intubation.
[2023-10-03 11:43] LABS: Urine Albumin Trace (Neg - Trace); Urine Bilirubin 1+ (Negative); Urine Character Clear (Clear); Urine Color Yellow; Urine Glucose Negative (Negative); Urine Ketone Trace (Negative); Urine Leukocyte 1+ (Negative); Urine Nitrite Negative (Negative); Urine Occult Blood Trace (Negative); Urine Specific Gravity 1.015 (<1.030); Urine Urobilinogen Negative (Neg - 1+)
--- NOTE | 2023-10-03 11:43 | CON.ONC ---
Impression
Impression
- SIRS
- malignant pleural effusion s/p PLEUREX
- relapsed multiple myeloma
- severe neutropenia
Plan
Plan
- presenting with worsening SOB despite drainage of pleurex (however CXR suggests significant residual fluid), hypotensive, tachycardic. echo ordered to rule out tamponade. On pressors and being admitted to ICU.
- CBC showed severe neutropenia which has developed over past 3-4 weeks. afebrile w/ no recent infections, new meds. Suspect his is due to rapidly progressing underlying MM. Neutropenic precautions, on empirical abx.
- pt with rapidly declining PS in setting of MM progression, not on tx since June due to PS. Family and pt aware of poor prognosis and poor candidacy for additional MM treatment. They have met with palliative care and are likely planning to
enroll in home hospice. and pt would like interventions if an option to help new acute symptoms however would avoid aggressive measures.
- will continue to follow.
Patient History
History of Present Illness
Malcolm is a 78 yo M with hematological hx of relapsed multiple myeloma s/p multiple lines of therapy with last tx in June with Teclistimab stopped for progression who is being admitted for worsening SOB despite having pleurex (recently placed for
myeloma associated effusions) drained 1000 cc this am. Pt became hypotensive in ED 77/49 and was started on pressor support, HR elevated 110-120 bpm which states is new. Denies fevers, chills. CXR showed LARGE LEFT PLEURAL EFFUSION which
appears to have increased in size since 09/03/2023. Tunneled pleural catheter remaining in place in the inferior left hemithorax. Complete compressive atelectasis of the left lower lobe and moderate compressive atelectasis on the left upper lobe.�
Mild left to right mediastinal shift. Additional 300cc drained. Echo ordered due to concern for possible tamponade. Labs notable for new neutropenia with WBC 0.8, ANC 600 (09/20 was starting to show drop with ANC 2000), hgb and plts similar to prior
levels.
Pt follows with dr. De La Fuente for management of MM and was scheduled to see him in office tomorrow for ongoing GOC discussion. At last visit 09/13 they discussed transitioning to comfort care due to aggressive nature of MM with progression and worsening
PS. plan was to have pleurex placed to see if helped PS then reassess. palliative care met with pt and family last week. is aware of poor prognosis and rapid decline with weight loss, fatigue. She agrees hospice is next step however hoping
acute medical issues can be addressed so he can be taken home on hospice.
Patient Medication
Medication Instructions Recorded Confirmed Last Taken Type
tamsulosin 0.4 mg capsule 0.4 mg PO HS Urinary issue 12/02/20 10/03/23 10/02/23 History
levothyroxine 137 mcg tablet 137 mcg PO DAILY Thyroid 12/20/20 10/03/23 10/02/23 History
apixaban 5 mg tablet 5 mg PO BID Blood Clot 09/02/23 10/03/23 10/02/23 History
Prevention/Tx
glimepiride 1 mg tablet 1 mg PO DAILY PRN blood sugar>200 09/02/23 10/03/23 Unknown History
loperamide 2 mg capsule 2 mg PO TID PRN diarrhea 09/03/23 10/03/23 Unknown History
midodrine 10 mg tablet 10 mg PO TID 09/20/23 10/03/23 10/02/23 History
Active Medications
Generic Name Dose Route Start Last Admin
Trade Name Freq PRN Reason Stop Dose Admin
Norepinephrine Bitartrate 4 mg in 250 mls @ 0 mls/hr 10/03/23 10:45 10/03/23 10:54
Levophed IV 250 mls
PER PROTOCOL VALDO Administration
Protocol
Per Protocol
Review of Systems
-
History Source: Patient and Family
Constitutional: Reports Weight Loss and Fatigue; Denies Fever or No Appetite
Respiratory: Reports Trouble Breathing; Denies Hemoptysis
Cardiac: Denies Chest Pain
Musculoskeletal: Reports Joint Pain
Neuro: Reports Weakness and Lightheadedness
Hematologic/Lymphatic: Denies Bleeding
Physical Exam
-
General: Appears Chronically Ill and Cachetic; Negative Respiratory Distress
HEENT: Other (pallor ); Negative Jaundice
Cardiology: Normal Sinus Rhythm and Other (tachycardia )
Pulmonary: Other (decreased BS in left lung from upper to lower gillis )
GI: Soft
Musculoskeletal: No Edema
Neurology: Non Focal
Labs
Lab Results
WBC 0.8 10^3/uL (4.8-10.8) L* 10/03/23 08:46
RBC 2.94 10^6/uL (4.70-6.10) L 10/03/23 08:46
Hgb 9.2 g/dL (13.0-18.0) L 10/03/23 08:46
Hct 28.2 % (39.0-52.0) L 10/03/23 08:46
MCV 95.9 fL (80.0-94.0) H 10/03/23 08:46
MCH 31.3 pg (27.0-31.0) H 10/03/23 08:46
MCHC 32.6 g/dL (33.0-37.0) L 10/03/23 08:46
RDW 16.3 % (11.5-14.5) H 10/03/23 08:46
Plt Count 255 10^3/uL (130-400) 10/03/23 08:46
MPV 9.3 fL (7.4-10.4) 10/03/23 08:46
Abs Immat Gran (auto) 0.0 10^3/uL (0-0.05) 10/03/23 08:46
Absolute Neuts (auto) 0.6 10^3/uL (1.4-6.5) L* 10/03/23 08:46
Absolute Lymphs (auto) 0.1 10^3/uL (1.2-3.4) L 10/03/23 08:46
Absolute Monos (auto) 0.0 10^3/uL (0.1-0.6) L 10/03/23 08:46
Absolute Eos (auto) 0.0 10^3/uL (0-0.7) 10/03/23 08:46
Absolute Basos (auto) 0.0 10^3/uL (0-0.2) 10/03/23 08:46
Immature Gran % 1.3 % (0-0.5) H 10/03/23 08:46
Neutrophils % 82.1 % (42.2-75.2) H 10/03/23 08:46
Lymphocytes % 11.5 % (20.5-51.1) L 10/03/23 08:46
Monocytes % 5.1 % (1.7-9.3) 10/03/23 08:46
Eosinophils % 0.0 % (0-6) 10/03/23 08:46
Basophils % 0.0 % (0-2) 10/03/23 08:46
Creatinine 1.4 mg/dL (0.7-1.3) H 10/03/23 08:46
Vital Signs
Vital Signs
Temp Pulse Resp BP Pulse Ox
98.3 F 112 20 94/72 97
10/03/23 08:30 10/03/23 11:15 10/03/23 11:15 10/03/23 11:15 10/03/23 11:15
--- NOTE | 2023-10-03 12:09 | CON.ID ---
Consultation
-
Date/Time Consultation Requested: 10/03/23 11:15
Date/Time Consultation Performed: 10/03/23 12:09
Requesting Provider: Dr Gaffney
Performing Provider: Dr Burr
Reason for Consultation: MM shock on pressors
Chief Complaint / Past History
Chief Complaint
Increasing shortness of breath and generally not feeling well
History of Present Illness
Mr Collins is a 89 year old male with history of multiple myeloma with last dose of chem in Aug (at least 3 weeks ago) - chemo on hold due to weakness. Of note with recurrent pleural effusions and has a pleurex with 800 ccs drained twice weekly.
Then this AM was dyspneic, 1 L drained - breathing improved but did not resolve and so he was brought to ER, 300 ccs further removed - bloody. History is limited due to the condition of the patient. Denies fevers or chills. Denies:
lightheadedness, dizziness, sore throat, cough, shortness of breath currently, chest pain, nausea, vomiting, dysuria frequency. Has chronic diarrhea for which he takes Imodium - unchanged. Reports coughing/choaking while eating.
Since arrival here he has been afebrile, hypotensive started on levophed, tachycardia noted, also tachypneic, has a normal WBC count at baseline today wbc 0.8, hgb 9.2, plt 255, ANC 600, l shift noted, cr 1.4 baseline 0.9, lactic acid 4.5 - repeat
pending, t bili 0.9, ast 19, alt 13, alk phos 61, pleural fluid 5000 WBCs and PMN predominant - LDH, glucose, protein, pH not sent, currently on vancomycin and zosyn. ID is consulted for assistance with management.
Past History
Additional Past Medical History:
Cancer (Multiple myeloma), HTN, Hypercholesterolemia, Hypothyroidism and Other (Recurrent pleural effusion; history of DVT on Eliquis
Additional Past Surgical History:
Tonsilectomy and Other (Left Pleurx catheter)
Allergy History:
No Known Allergies Allergy (Verified 02/25/24 08:44)
Medications Reviewed: Yes
Social History
Tobacco: Non-Smoker
Alcohol: None
Drug: None
Family History
Family History: Not Pertinent
Review of Systems
Review of Systems
General: Negative Fever or Chills
All systems: All other systems were reviewed and were negative
Vital Signs
Temp Pulse Resp BP Pulse Ox
98.3 F 111 34 101/63 97
10/03/23 08:30 10/03/23 11:56 10/03/23 11:56 10/03/23 11:45 10/03/23 11:45
Physical Exam
Physical Exam
Constitutional: No Acute Distress and Cachetic (temporal wasting, scaphoid abdomen, sarcopenia noted)
Cardiovascular: Regular Rate and S1/S2; Negative Murmur or Rub
Pulmonary: Clear and Symmetric; Negative Wheezes, Rales or Rhonchi
Gastrointestinal: Soft, Non Tender, Non Distended and Normal Bowel Sounds
Skin: Warm and Dry; Negative Rash or Jaundice
Lab / Diagnostic Study Results
10/03/23 08:46
10/03/23 08:46
Abs Immat Gran (auto) 0.0 10^3/uL (0-0.05) 10/03/23 08:46
Absolute Neuts (auto) 0.6 10^3/uL (1.4-6.5) L* 10/03/23 08:46
Absolute Lymphs (auto) 0.1 10^3/uL (1.2-3.4) L 10/03/23 08:46
Absolute Monos (auto) 0.0 10^3/uL (0.1-0.6) L 10/03/23 08:46
Absolute Basos (auto) 0.0 10^3/uL (0-0.2) 10/03/23 08:46
Immature Gran % 1.3 % (0-0.5) H 10/03/23 08:46
Neutrophils % 82.1 % (42.2-75.2) H 10/03/23 08:46
Lymphocytes % 11.5 % (20.5-51.1) L 10/03/23 08:46
Monocytes % 5.1 % (1.7-9.3) 10/03/23 08:46
Eosinophils % 0.0 % (0-6) 10/03/23 08:46
Basophils % 0.0 % (0-2) 10/03/23 08:46
PT 32.4 Sec (11.4-14.6) H 10/03/23 08:46
INR 3.16 10/03/23 08:46
Lactic Acid 4.5 mmol/L (0.7-2.0) H* 10/03/23 08:46
Microbiology Results
Micro:
10/03/23 11:08 Urine Culture - Pending
Urine
10/03/23 08:49 Influenza Types A & B (PRO) - Final
Nasal Swab Negative for Influenza A & B, NAAT
Negative results must be combined with clinical observations
and patient history.
Nucleic Acid Amplification test (NAAT)performed on the
[employer] platform.
10/03/23 09:08 Body Fluid Culture - Pending
Pleural Fluid Gram Stain - Pending
10/03/23 08:46 Blood Culture - Pending
Blood/Venous
10/03/23 08:49 Blood Culture - Pending
Blood/Venous
Assessment / Plan
Probable Parapneumonic Effusion vs Empyema; h/o malignant pleural effusion
Suspect chronic aspiration
Neutropenia - acute
Relapsed MM
ROXANA
Cachexia
- pleural fluid neutrophilic, high wbc count
- asked lab to add on pH, protein, ldh, glucose if able - if not may be able to obtain a small sample from the pleurex
- body fluid culture pending
- ua minimal pyuria, follow up urine culture
- mrsa pcr on the nose - if negative can stop vancomycin
- blood cultures x2 in progress
- sputum culture if able
- agree with zosyn - will deescalate as able
- note steroids
- CUSTOMER SUPPORT ANALYST consult in the AM, personally feel a diet is reasonable given overall clinical picture
- follow clinically
Note oncology comments 'rapidly progress, patient and family aware of poor prognosis... planning to enroll in hospice, would like interventions if an option to manage new symptoms'
Care Review
Plan reviewed with: Nurse (pleural fluid cultures)
[2023-10-03 12:11] LABS: Urine Bacteria Many (Negative)
[2023-10-03] MEDS: TYLENOL 650 MG PO (12:50)
--- NOTE | 2023-10-03 12:50 | PHA.VAN.IN ---
Assessment
- Assessment
Renal Function: Appears elevated from baseline (1.4(now) vs 0.9(baseline))
Renal Function may be Overestimated due to: age
Concomitant Antimicrobials: zosyn
Plan
- Plan
Initial / Loading Dose: 1500mg
Maintenance Regimen: prn by level
Monitoring: Random 10/04 in AM
dose by level until kidney fx back to baseline
Pharmacokinetics Vancomycin I
- -
Patient Age: 78
Patient Sex: Male
Vancomycin Day #: 1
Indication: Other
Requesting Provider: Gulshan
Pertinent Antimicrobial Allergies:
nkda
Height / Weight:
Height 6 ft 1 in
Actual Weight 57 kg
IBW in k.9
- Vital Signs / Lab Results
Temp Pulse Resp BP Pulse Ox
102.8 F H 111 34 101/63 97
10/03/23 12:16 10/03/23 11:56 10/03/23 11:56 10/03/23 11:45 10/03/23 11:45
Lab Results - Hematology
10/03/23
08:46
WBC 0.8 L*
Lab Results - Chemistry
10/03/23
08:46
BUN 38 H
Creatinine 1.4 H
Albumin 2.7 L
10/03/23
08:46
Lactic Acid 4.5 H*
Lab Results - Urine
10/03/23
11:08
Urine Nitrite (Reflex) Negative
Leukocyte Esterase Rfl 1+ A
Urine WBC (Reflex) 6-10
Urine Bacteria (Reflex) Many A
Microbiology Results
10/03/23 08:49 Influenza Types A & B (PRO) - Final
Nasal Swab Negative for Influenza A & B, NAAT
Negative results must be combined with clinical observations
and patient history.
Nucleic Acid Amplification test (NAAT)performed on the
[employer] NOW platform.
[2023-10-03] MEDS: NSS 1000 IV ×2 (12:51→21:11)
--- NOTE | 2023-10-03 13:00 | PTCARENOTE ---
Pt received in bed from ED via stretcher. AAOx3. Drowsy. Sleeping intermittently but rouses to verbal stimuli and answers questions appropriately. Rectal temp 102.8F. Pt tolerated bedside swallowing assessment without cough or wet vocal quality. PRN
Tylenol administered. SaO2 97% on 2L NC. RR 30s. Left lung diminished throughout. (L) pleural catheter in place. Sinus tach on lathe setup operator. HR 110s - 120s. No edema. Levophed gtt infusing @ 5 mcg/min with goal of MAP > 65. Pt cachectic.
Reports last bowel movement yesterday. Incontinent of urine. Condom catheter in place. NSS infusing @ 125ml/hr.
[2023-10-03 13:19] LABS: Glucose - Point of Care 128 mg/dl (70-99)
[2023-10-03 13:50] LABS: LDH 207 U/L (120-246)
[2023-10-03 13:52] LABS: Lactic Acid 4.5 mmol/L (0.7-2.0)
[2023-10-03 14:07] LABS: NT-proBNP 11300 pg/ml; Troponin I 0.036 ng/ml
--- NOTE | 2023-10-03 14:25 | W.PN.UPDATE ---
Update Note
Progress Note Update
lab unable to add on pH, ldh, glucose, protein - sample too old
ICU RNs not credentialed to access pleurex. Discussed with Dr Gore - he is not credentialed to accesses either and neither am I.
Already have a high suspicion for empyema - additional pleural studies unlikely to place change roof bolter overnight or in the next few days given overall clinical picture
In the am I will reassess, if it will place change roof bolter I will call IR.
[2023-10-03 14:31] LABS: Body Fluid Glucose < 30 mg/dl; Body Fluid Protein 5.2 g/dl
[2023-10-03 14:54] LABS: Body Fluid LDH 3918 U/L
[2023-10-03] MEDS: SOLU-CORTEF 100 MG IV ×2 (16:07→23:34)
[2023-10-03 17:08] LABS: Glucose - Point of Care 133 mg/dl (70-99)
[2023-10-03] MEDS: HEPARIN 5000 UNITS SC ×2 (17:34→23:34)
[2023-10-03] MEDS: ProAmatine 10 MG PO (17:34)
--- NOTE | 2023-10-03 17:50 | PTCARENOTE ---
Rectal temp 99.6F. HR 80s - 90s. SaO2 98% on 2L with RR 20s. Weaning Levophed gtt with goal of MAP > 65; currently infusing @ 3 mcg/min.
--- NOTE | 2023-10-03 17:53 | PTCARENOTE ---
Sacrum with healing Stage 2. Blanchable red. reports that she has been doing wound care daily. Sacral foam and B/L heel foams in place. Air cushion under ankles. Pt on air bed.
[2023-10-03 19:45] LABS: Lactic Acid 2.8 mmol/L (0.7-2.0)
--- NOTE | 2023-10-03 20:00 | PTCARENOTE ---
Resumed care of pt laying in bed with at bedside. Pt AAOx3, conversant and pleasant. Pt denies any complaints at this time. HR in the 90's in NSR on the monitor. POX 97% on 2 LO2 NC. Lungs severely dec on left, clear on right. NAIR/ Tachypneic.
Left sided Pleurx cath in place with dressing intact. + bowel. CC in place draining yellow urine. Pale cool skin. Sacral foam intact (healing stage 2). B/L Heel foams in place for protection. Heels elevated on air pillow. Weak pedal pulses present.
Cachectic habitus. Right AC int infusing Levophed @3mcg/min to keep MAP>65. Right wrist int infusing NSS@125ml/hr. Pt turned on side and repositioned per comfort. Rectal temp 98.8. Warm blankets provided. Call pickens in reach. will continue to
monitor.
[2023-10-03] MEDS: FLOMAX 0.400000000000000022 MG PO (21:13)
[2023-10-03 23:33] LABS: Glucose - Point of Care 160 mg/dl (70-99)
[2023-10-03 23:56] LABS: Lactic Acid 2.8 mmol/L (0.7-2.0)
[2023-10-04] VITALS (17 sets, daily range): BP systolic 82–105; BP diastolic 51–64; BMI 16.6
--- NOTE | 2023-10-04 | PTCARENOTE ---
Pt sleeping comfortably. Pt repositioned per comfort. Pt denies any complaints. Preliminary blood cultures came back positive, Obed BERNAL notified. No new orders at this time. Unable to taper Levophed at this time, blood pressure remains
borderline at current rate. IVF infusing as ordered. Pt remains afebrile. Will continue to monitor.
[2023-10-04 00:09] LABS: Troponin I 0.033 ng/ml
[2023-10-04] MEDS: NOVOLOG FLEXPEN-LOW RESISTANCE 1 UNITS SC ×2 (00:12→06:10)
[2023-10-04] MEDS: LEVOPHED 250 IV (01:28)
--- NOTE | 2023-10-04 04:00 | PTCARENOTE ---
Pt sleeping comfortably overnight. No issues to report. AM labs obtained. Complete bed bath provided. Pt repositioned per comfort. IVF/ Levo continues to infuse as ordered. Will continue to monitor.
[2023-10-04] MEDS: ZOSYN 50 IV (04:08)
[2023-10-04 04:31] LABS: Hematocrit 24.5 % (39.0-52.0); Mean Corp Hgb Conc. 32.7 g/dL (33.0-37.0); Mean Corpuscular Hgb 31.7 pg (27.0-31.0); Mean Corpuscular Volume 97.2 fL (80.0-94.0); Platelet Count 147 10^3/uL (130-400); Red Blood Cell Count 2.52 10^6/uL (4.70-6.10); Red Cell Dist. Width 16.3 % (11.5-14.5)
[2023-10-04 04:37] LABS: White Blood Cell Count 1.1 10^3/uL (4.8-10.8)
[2023-10-04 04:51] LABS: Vancomycin Random 11.5 ug/ml
[2023-10-04 04:55] LABS: Blood Urea Nitrogen 47 mg/dl (9-20); Calcium 7.7 mg/dl (8.4-10.2); Carbon Dioxide 18 mmol/L (22-30); Chloride 110 mmol/L (98-107); Estimated Creatinine Clearance 30 ml/min; Glucose 152 mg/dl (70-99); Potassium 3.9 mmol/L (3.5-5.1); Sodium 137 mmol/L (135-145); eGFR 43.56
[2023-10-04 04:57] LABS: Lactic Acid 1.8 mmol/L (0.7-2.0)
[2023-10-04 04:58] LABS: Troponin I 0.023 ng/ml
[2023-10-04] MEDS: NSS 1000 IV (06:07)
[2023-10-04] MEDS: SYNTHROID 137 MCG PO (06:08)
[2023-10-04 06:21] LABS: Glucose - Point of Care 159 mg/dl (70-99)
[2023-10-04] MEDS: SOLU-CORTEF 100 MG IV (08:30)
[2023-10-04] MEDS: HEPARIN 5000 UNITS SC (08:30)
[2023-10-04] MEDS: ProAmatine 10 MG PO ×3 (08:30→18:12)
[2023-10-04] MEDS: TYLENOL 650 MG PO (08:34)
--- NOTE | 2023-10-04 08:35 | PTOTSP ---
Addendum entered and electronically signed by ST Christa 10/04/23 11:19:
PROCESS COACH orders cancelled and message received from RN that pt is now hospice. Diet to be ordered as comfort feeds. Please reconsult as indicated.
Original Note:
Speech Language Pathology
Pt seen for clinical bedside swallow evaluation. ID suspects chronic aspiration. Pt denied any hx of dysphagia, but also denied weight loss. First seen with med pass with single meds whole with consecutive sips of liquid. Wet vocal quality
noted, which pt was able to clear with a cued cough. P.O. trials of puree, regular solids, and thin liquids via single straw sips provided. Intermittent wet vocal quality noted, again with ability to clear with cued cough. Question aspiration.
Given CXR findings with ID high suspicion for chronic aspiration coupled with signs of aspiration bedside at this time:
Recommend:
(1) NPO
(2) Oral care 4x/day with suctioning as needed
(3) Meds whole in puree
(4) VSE
(5) PROCESS COACH to continue to follow
[2023-10-04 08:38] LABS: Nucleated Red Blood Cells % 1.8 % (-)
[2023-10-04 08:39] LABS: Band Neutrophils 10 % (0-3); Lymphocytes 20 % (20-51); Monocytes 5 % (2-9); Segmented Neutrophils 64 % (42-75)
[2023-10-04 08:40] LABS: Platelets Checked YES
[2023-10-04 08:41] LABS: Anisocytosis Slight; Normal RBC Morphology No; Ovalocytes FEW; Target Cells FEW; Tear Drop Red Blood Cells FEW; Vacuolated Segs FEW
[2023-10-04 08:42] LABS: Total Cells Counted 100
[2023-10-04 08:44] LABS: Absolute Neutrophils -Man Diff 0.8 10^3/uL (1.4-6.5)
--- NOTE | 2023-10-04 08:53 | W.PN.INTV ---
Today's Communication / Plan
Recommendations
Hospice consult
prn dilaudid (given ROXANA)
prn ativan
prn hyoscyamine
Considering patient is now being transitioned to hospice care, senior occupational therapist/pulmonary service will now sign off. Please reconsult if there are any additional questions/concerns.
Assessment
-
78-year-old male with history of progressive multiple myeloma, chemotherapy/IVIG, left pleural effusion status post Pleurx catheter, diabetes, DVT on Eliquis therapy presents with progressive shortness of breath, hypotension and worsening left
pleural effusion per my review. Asked to see patient emergently by ED staff 10/02/2023. Patient transferred to ICU where he is continuing to be managed and patient/family is pursuing hospice given his multiple sources of positive cultures as well
as continued risk of recurrent aspiration.
Septic shock due to E. coli bacteremia with sources including UTI + HAP + L-sided empyema all in setting of E. coli bacteremia
Left sided empyema in setting of known malignant (MM) L-pleural effusion s/p Asept (placed 09-20-2023)
Chronic aspiration
Acute hypoxic respiratory failure due to above
Left Pleurx catheter placement 09/20/2023
Drainage Wednesday/Wednesday, 800 cc/bloody
Progressive multiple myeloma ([place])
Advanced MM: on teclistamab s/p several cycles (last 08/19)
Large lytic lesion right iliac bone secondary to multiple myeloma
L4-5 chronic compression fracture secondary to multiple myeloma
R arm plasmacytoma s/p palliative XRT 2016
Previous biopsy proven plasma cell neoplasm of abdominal wall and supraclavicular region
Has not achieved a significant positive response to current treatment
Monthly IVIG
Conditions present prior to admission
Bilateral KULWANT DVT February 2023, on apixaban
Diabetes type 2 with neuropathy
Osteoporosis
Hypertension
Hypothyroidism
Hyperlipidemia
Diverticulosis
Renal calculi
BPH
Hepatic hemangioma
Chronic anemia
Former smoker-quit many years ago
Tonsillectomy/urologic surgery
Stage II sacral decubitus ulcer
Cachexia
DNR
Plan/recommendations
Patient continues to require vasopressors and is critically ill
Infectious disease and hospitalist physician discussed hospice with the patient/family --> patient/family wishes to pursue this.
There is normal biventricular size/systolic function as per TTE from yesterday
Antibiotics to be stopped given patient is now pursuing hospice
With regards to left Pleurx catheter, would avoid any additional drainage at this time unless absolutely necessary for respiratory issues
There is a possibility that one of his chest lesions is bleeding more causing mediastinal shift, hypotension and worsening effusion
Despite drainage as outpatient, appears to be worse per my review
Patient now DNR/DNI
Considering patient is now being transitioned to hospice care, senior occupational therapist/pulmonary service will now sign off. Thank you for allowing us to be involved in the care of this patient and please reconsult if there are any additional questions/concerns.
Diagnostic Data:
TTE 09-02-23: small pericardial effusion. Normal biventricular function
CXR 10-03-2023:
1. � LARGE LEFT PLEURAL EFFUSION which appears to have increased in size since 09/03/2023. Tunneled pleural catheter remaining in place in the inferior left hemithorax.
2. � Complete compressive atelectasis of the left lower lobe and moderate compressive atelectasis on the left upper lobe.
3. � Mild left to right mediastinal shift.
4. � Small right pleural effusion and adjacent mild scarring in the right lower lobe.
5. � Multiple lytic multiple myeloma lesions in the left anterior and lateral ribs with associated soft tissue masses.
Subjective Dataa
Subjective Data
Date of Service:
Date of Service: October 04, 2023
Chief Complaint: [employer] Follow Up
Subjective:
Seen this morning. Remains on 2 L/min nasal cannula saturating 98%. Conversation held with infectious disease as well as hospitalist. Patient/family is heading towards hospice given his recurrent aspiration pneumonia/pneumonitis. In addition he
has multiple body fluids that are positive including his urine and pleural fluid in addition to blood indicating he is grossly septic/bacteremic. Remains on Levophed this morning with BP 96/59. Patient has been afebrile however last temperature
was yesterday afternoon to 102.8 �F. Patient denies chest pain, abdominal pain, fevers or chills.
Review of Systems
General: Other (Negative less mentioned above)
Objective Data
Data Reviewed
Vital Signs / I&O / Oxygen:
Vital Signs
Temp Pulse Resp BP Pulse Ox
98.7 F 103 23 87/52 98
10/04/23 07:22 10/04/23 07:30 10/04/23 07:30 10/04/23 07:00 10/04/23 07:30
Intake and Output
10/03/23 10/04/23 10/05/23
06:59 06:59 06:59
Intake Total 1720.4 / 1852.9 132.5 / 132.5
Output Total 250 / 250
Balance 1470.4 / 1602.9 132.5 / 132.5
SaO2 98
Nasal Cannula flow liters per 2
minute
Physical Exam
General: Respiratory Distress (Negative), Comfortable and Other (Cachectic)
HEENT: Normocephalic and Anicteric
Cardiovascular: S1-S2, Rub (negative) and Peripheral Edema (negative)
Respiratory: Wheeze (negative), Crackles (negative), Rhonchi (negative) and Other (Reduced breath sounds on left hemithorax)
GI: Soft, Non Distended and Non Tender
Neurology: Awake and Alert
Skin: Warm, Dry and Cyanosis (negative)
Labs/Micro/Reports
Lab Data
10/04/23 04:22
10/04/23 04:22
Laboratory Results
10/03/23
08:46
PT 32.4 H
INR 3.16
APTT 37.4 H
Microbiology
10/03/23 09:08 Pleural Fluid Body Fluid Culture - Preliminary
Escherichia coli
10/03/23 09:08 Pleural Fluid Gram Stain - Preliminary
10/03/23 08:49 Blood/Venous Blood Culture - Preliminary
Positive culture in progress
10/03/23 08:49 Blood/Venous Gram Stain - Final
10/03/23 08:46 Blood/Venous Blood Culture - Preliminary
Positive culture in progress
10/03/23 08:46 Blood/Venous Gram Stain - Final
10/03/23 13:28 Nose Nasal Screen MRSA (PCR) - Final
MRSA not detected - performed by PCR methodology.
10/03/23 08:49 Nasal Swab Influenza Types A & B (PRO) - Final
Negative for Influenza A & B, NAAT
Negative results must be combined with clinical observations
and patient history.
Nucleic Acid Amplification test (NAAT)performed on the
[employer] NOW platform.
[2023-10-04 09:22] LABS: Glycohemoglobin (HgbA1c) 5.5 % (4.0-5.6)
--- NOTE | 2023-10-04 09:36 | W.PN.ID1 ---
Date of Service
Date of Service: October 04, 2023
Today's Communication
Recommend hospice, etiology is likely aspiration which is very likely to be recurrent, progressive frailty due to progressive malignancy
Assessment / Plan
Empyema
Suspect chronic aspiration
Neutropenia - acute
Relapsed MM
ROXANA
Cachexia
- pleural fluid neutrophilic, high wbc count, culture positive - further pleural studies would not change house attendant from my perspective
- follow jenn from blood/body fluid- clinically improving on zosyn - deescalate as able
- stopped vancomycin
- note steroids - management per pulmonary
- BENCH MOVER consult in the AM, personally feel a diet is reasonable given overall clinical picture
- follow clinically
Recommend hospice, etiology is likely aspiration which is very likely to be recurrent, progressive frailty due to progressive malignancy
Chief Complaint
-: Fever, Pneumonia and Other (empyema)
Subjective / Review of Systems
afebrile almost 24 hours
declining pressor requirements
improved leukopenia and ANC
cr increasing
body fluid, probable E coli, urine cultures x2 GNR
Vital Signs / Physical Exam
Vital Signs
Vital Signs
Temp Pulse Resp BP Pulse Ox
98.7 F 103 23 87/52 98
10/04/23 07:22 10/04/23 07:30 10/04/23 07:30 10/04/23 07:00 10/04/23 07:30
Physical Exam
Constitutional: No Acute Distress and Cachetic
Cardiovascular: Regular Rate and S1/S2; Negative Murmur or Rub
Pulmonary: Clear and Symmetric; Negative Wheezes or Rales
Gastrointestinal: Soft, Non Tender, Non Distended and Normal Bowel Sounds
Skin: Warm and Dry; Negative Rash or Jaundice
Neurological: Awake and Alert
Objective Data
Lab Data
Lab Results
02/26/24 04:22
10/04/23 04:22
PT 32.4 Sec (11.4-14.6) H 10/03/23 08:46
INR 3.16 10/03/23 08:46
APTT 37.4 Sec (23.4-35.0) H 10/03/23 08:46
Estimated Creat Clear 30 ml/min 10/04/23 04:22
Lactic Acid 1.8 mmol/L (0.7-2.0) 10/04/23 04:22
Total Bilirubin 0.9 mg/dl (0.2-1.3) 10/03/23 08:46
AST 19 U/L (17-59) 10/03/23 08:46
ALT 13 U/L (0-50) 10/03/23 08:46
Alkaline Phosphatase 61 U/L (38-126) 10/03/23 08:46
Most recent labs reviewed.
Micro Results:
10/03/23 11:08 Urine Culture - Preliminary
Urine Escherichia coli
10/03/23 09:08 Body Fluid Culture - Preliminary
Pleural Fluid Escherichia coli
Gram Stain - Preliminary
10/03/23 08:49 Blood Culture - Preliminary
Blood/Venous Positive culture in progress
Gram Stain - Final
10/03/23 08:46 Blood Culture - Preliminary
Blood/Venous Positive culture in progress
Gram Stain - Final
10/03/23 13:28 Nasal Screen MRSA (PCR) - Final
Nose MRSA not detected - performed by PCR methodology.
10/03/23 08:49 Influenza Types A & B (PRO) - Final
Nasal Swab Negative for Influenza A & B, NAAT
Negative results must be combined with clinical observations
and patient history.
Nucleic Acid Amplification test (NAAT)performed on the
[employer] platform.
Care Review
Plan reviewed with: Physician (Dr Appiah - hospice)
[2023-10-04] MEDS: ZOSYN IV (11:10)
--- NOTE | 2023-10-04 11:24 | VNURNOTE ---
Patient is current with [facility] since 09/07 w/ SN/PT/OT, will monitor progress and plan at discharge.
--- NOTE | 2023-10-04 14:15 | CM ---
Addendum entered by Celia Davis 10/04/23 14:31:
Referral for hospice care sent via [facility]
Original Note:
Chart reviewed. Spoke with pt at bedside
Pt lives with his in a ranch style home
Has been receiving treatment for multiple myeloma
DME in home includes wheel chair, commode, rolling walker and cane
Receiving services prior to current hospitalization with [facility]
Denies past SNF
PCP - Dr Kandis Felton
Pharm - [facility], [place]
CM consulted for hospice care. Spoke with pts Yadira. Discussed hospice care. Reported she had spoke with Rosmery at [facility] [phone] last week and prefers to use that agency. Called [facility] and to refer pt -
herbicide service sales representative to return call.
CM will follow for d/c needs
Plan - Anticipate - home with hospice care (TBD)
--- NOTE | 2023-10-04 14:39 | W.PN.HOSP.TC ---
Today's Communication/Plan
-
Hospice consultation
Assessment / Plan
Assessment / Plan
Impression:
Clinical sepsis
� Presentation with hypotension not responding to IV fluids and requiring pressors
Suspected aspiration pneumonia.
Severe aspiration syndrome.
� Blood culture, urine culture, left pleural fluid positive for E. coli.
Rapidly reaccumulating left pleural effusion status post Pleurx drain 1300 mL on 10/03/2023 upon presentation.
Mediastinal shift to the right.
Progressive multiple myeloma last therapy with Teclistamab on 08/19.
Conditions prior to admission:
Bilateral lower extremity DVT February 2023 on apixaban.
Type 2 diabetes baseline hypertension.
Osteoporosis.
Hypothyroidism
Dyslipidemia.
BPH.
Severe cachexia with BMI of 16.
Plan:
Patient with advanced multiple myeloma not responding to treatment, failure to thrive with decreased performance status, malignant pleural effusion with left Pleurx in place, presents with sepsis and gram-negative bacteremia suspected aspiration
pneumonia with parapneumonic effusion possibly empyema given rapid recurrence as well as mediastinal shift
Remains on broad-spectrum antibiotics and vasopressors. Overall prognosis poor given advanced multiple myeloma, failure to thrive, immunosuppression, cachexia with BMI of 16 only in the settings of severe aspiration syndrome. In this unfortunate
situation limited options to maximus. Artificial means of nutrition including tube feeding or PEG would not improve quality of life or survival
Discussed with patient and patient's over the phone
Discussed with electric organ inspector and repairer and ID service
Plan is for hospice transition.
Withhold antibiotics, IV pressors
Advance diet to comfort feeding
Attempt to continue midodrine for hypotension.
Hospice consultation and discharge planning according to clinical development over the next 24 to 48 hours. (Home versus inpatient hospice)
Anticipated Discharge: 24 - 48 hours
Subjective/Interval History
-
Date of Service: October 04, 2023
Objective Data
-
Labs:
Laboratory Results
10/04/23
04:22
WBC 1.1 L*
Hgb 8.0 L
Hct 24.5 L
Plt Count 147 D
Sodium 137
Potassium 3.9
Chloride 110 H
Carbon Dioxide 18 L
BUN 47 H
Creatinine 1.6 H
Glucose 152 H
Calcium 7.7 L
Vital Signs:
Vital Signs
Temp Pulse Resp BP Pulse Ox
98.8 F 91 26 97/59 97
10/04/23 11:00 10/04/23 09:45 10/04/23 09:45 10/04/23 09:30 10/04/23 09:45
I&O
10/03/23 10/04/23 10/05/23
06:59 06:59 06:59
Intake Total 1720.4 / 1852.9 397.5 / 397.5
Output Total 250 / 250
Balance 1470.4 / 1602.9 397.5 / 397.5
Physical Exam
-
General: Well Developed and No Apparent Distress
HEENT: Normocephalic, Atraumatic and Moist Mucous Membranes
Respiratory: Clear to Auscultation
Cardiac: Regular Rhythm and S1/S2; Negative Murmur, Rub or Gallop
GI: Soft, Nontender, Nondistended and Normal Bowel Sounds; Negative Organomegaly
Rectal: Deferred by Provider
Musculoskeletal: No Clubbing, No Cyanosis and No Edema
Skin: Negative Rash
Neuro: Nonfocal/Grossly Intact
[2023-10-04] MEDS: TYLENOL 1000 MG PO (19:09)
--- NOTE | 2023-10-04 19:23 | PTCARENOTE ---
Resumed care of pt sitting up in bed with son at bedside. Pt reports lower back pain 10/16. PRN Tylenol administered as ordered. Pt reports being cold, warm blankets provided. HR in the 90's, Pt on 2 LO2 NC. Lungs dec on left. NAIR. CC in place
draining silvano colored urine. No BM at this time. Sacral foam in place. B/L heel foams in place. Right AC int/ Right wrist int capped at this time. Pt repositioned per comfort. heels elevated on air pillow. Comfort measures maintained per protocol.
now at bedside. Call pickens in reach. Will continue to monitor.
[2023-10-04] MEDS: MORPHINE SULFATE 2 MG IV (21:09)
--- NOTE | 2023-10-04 23:35 | PTCARENOTE ---
Pt complaining of right sided lower back pain. No improvement post Tylenol administration. Morphine administered as ordered for pain. Pt now resting comfortably. sleeping at bedside. No issues to report at this time. Will continue to monitor.
[2023-10-05] VITALS: BP 83/55
[2023-10-05] MEDS: MORPHINE SULFATE 2 MG IV ×4 (02:59→14:40)
--- NOTE | 2023-10-05 03:04 | PTCARENOTE ---
Pt awake and complaining of middle lower back pain. Pt repositioned per comfort. PRN Morphine administered as ordered. remains at bedside. No other changes in assessment noted at this time. Will continue to monitor.
[2023-10-05 08:00] VITALS: BP 83/55
[2023-10-05] MEDS: ProAmatine 10 MG PO ×2 (08:00→11:07)
[2023-10-05] MEDS: TYLENOL 1000 MG PO (08:10)
--- NOTE | 2023-10-05 09:07 | PTCARENOTE ---
pt is drowsy , oriented x 3 , at bedside , co pain with R arm, morphine as needed,cachectic , poor appetite , condom cath with clear yellow urine , plan for pt to go home today with hospice
--- NOTE | 2023-10-05 09:55 | W.DS.TRANS ---
DC Summary - Prevention Specialist
-
Discharge Instructions:
Discharge Diagnosis/Procedures Impression:
Clinical sepsis
� Presentation with hypotension not responding
to IV fluids and requiring pressors
Suspected aspiration pneumonia.
Severe aspiration syndrome.
� Blood culture, urine culture, left pleural
fluid positive for E. coli.
Rapidly reaccumulating left pleural effusion
status post Pleurx drain 1300 mL on 10/03/2023
upon presentation.
Mediastinal shift to the right.
Progressive multiple myeloma last therapy with
Teclistamab on 08/19.
Conditions prior to admission:
Bilateral lower extremity DVT February 2023 on
apixaban.
Type 2 diabetes baseline hypertension.
Osteoporosis.
Hypothyroidism
Dyslipidemia.
BPH.
Severe cachexia with BMI of 16.
Diet Regular
Instructions:
Stand-Alone Forms:
Changes to Home Medications: Yes
Discharge Medications:
Home Medication Changes
Home hospice discharge
Pending Results: No
--- NOTE | 2023-10-05 10:44 | CM ---
CM following re: discharge planning.
Reviewed pt's chart, met with pt and pt's spouse at bedside.
Discharged order is noted. Both pt and his spouse are aware, expressed their agreement with discharge. IMM reviewed, placed in chart, pt has a copy.
CM spoke to [facility] hospice care apprenticeship training representative Marilyn [phone] and she confirmed that a hospital bed and home Oxygen delivered to pt's home and pt will be signed in ion hospice care with [facility] hospice when pt arrives home.
arranged transportation with [facility] with tack picker time 2:30 p.m. [facility] and left with . to complete out of hospital DNR.
Discharge instruction please fax to [facility] at [phone]
D/C plan: home with [facility] hospice and family support.
No other discharge needs identified.
[2023-10-05] MEDS: ATIVAN 0.5 MG PO (14:40)
--- NOTE | 2023-10-05 16:17 | PTCARENOTE ---
Pt discharge to home on hospice Out of hospital dnr on chart, transport crew aware. Pt medicated with morphine and ativan prior to discharge as charted. Pt reporting comfort at time of discharge. Condom cath removed and pt dressed and left via
ambulance. given discharge records.
== END 2023-10-05 15:30 | disposition hospice, home (50) | DRG 871 ==
LOC: ICU 11:30
PROVIDERS: Nurse Practitioner Family; Physician Assistant Medical; ADMITTING PHYSICIAN Internal Medicine; ATTENDING PHYSICIAN Internal Medicine; EMERGENCY PHYSICIAN Emergency Medicine; FAMILY PHYSICIAN Family Medicine; OTHER PHYSICIAN Internal Medicine Critical Care Medicine; OTHER PHYSICIAN Internal Medicine Hematology & Oncology; OTHER PHYSICIAN Student in an Organized Health Care Education/Training Program
DX: A41.51 Sepsis due to Escherichia coli [E. coli] (principal); J69.0 Pneumonitis due to inhalation of food and vomit; R65.21 Severe sepsis with septic shock; J96.01 Acute respiratory failure with hypoxia; J86.9 Pyothorax without fistula; J91.0 Malignant pleural effusion; N17.9 Acute kidney failure, unspecified; E87.20 Acidosis, unspecified; C90.02 Multiple myeloma in relapse; J98.11 Atelectasis; R64 Cachexia; Z68.1 Body mass index [BMI] 19.9 or less, adult; D84.9 Immunodeficiency, unspecified; N39.0 Urinary tract infection, site not specified; Z51.5 Encounter for palliative care; Y95 Nosocomial condition; E11.40 Type 2 diabetes mellitus with diabetic neuropathy, unspecified; D64.9 Anemia, unspecified; E03.9 Hypothyroidism, unspecified; D70.9 Neutropenia, unspecified; E78.00 Pure hypercholesterolemia, unspecified; M81.0 Age-related osteoporosis without current pathological fracture; N40.0 Benign prostatic hyperplasia without lower urinary tract symptoms; R62.7 Adult failure to thrive; D18.03 Hemangioma of intra-abdominal structures; L89.152 Pressure ulcer of sacral region, stage 2; R93.89 Abnormal findings on diagnostic imaging of other specified body structures; I10 Essential (primary) hypertension; Z66 Do not resuscitate; Z87.442 Personal history of urinary calculi; Z79.890 Hormone replacement therapy; Z92.21 Personal history of antineoplastic chemotherapy; Z11.52 Encounter for screening for COVID-19; Z86.718 Personal history of other venous thrombosis and embolism; Z79.84 Long term (current) use of oral hypoglycemic drugs; Z79.01 Long term (current) use of anticoagulants; Z92.3 Personal history of irradiation; Z86.16 Personal history of COVID-19; Z87.891 Personal history of nicotine dependence
CPT/HCPCS: 93308; 71045; 80048; 80053; 80202; 81003; 81015; 82945; 82962; 83036; 83605; 83615; 83880; 84157; 84484; 85025; 85610; 85730; 86850; 86900; 86901; 87015; 87040; 87070; 87071; 87077; 87086; 87149; 87186; 87205; 87502; 87641; 87811; 89051; 92610; 93005; 93321; 93325; 96361; 96365; 96375; 99291